=== PATIENT | male | born 1965 | race Caucasian/White ===

== ENCOUNTER 2018-09-20 21:28 | Inpatient (IN) | payer OTHER ==
[2018-09-20 21:50] VITALS: BMI 27.1
--- NOTE | 2018-09-21 01:04 | HP ---
COWS - Scale Resting Pulse: 0= [place] 80 or Below Sweatin=Flushed/Facial Moisture Restless Observation: 0= Sits Still Pupil Size: 0= Normal to Room Light Bone or Joint Aches: 2= Severe Diffuse Aches Runny Nose/ Eye Tearin= Runny Nose/Eyes GI Upset > 30mins: 3= Vomiting/Diarrhea (vomiting x 2, diarrhea x 4) Tremor Observation: 2= Slight Tremor Visible Yawning Observation: 1= 1-2x During Session Anxiety or Irritability: 4=Extreme Anxiety Goose Flesh Skin: 0=Smooth Skin COWS Score: 16 CIWA Score - Admission Criteria OASAS Guidelines: Admission for Medically Managed Detox: Requires at least one of the followin. CIWA greater than 12 2. Seizures within the past 24 hours 3. Delirium tremens within the past 24 hours 4. Hallucinations within the past 24 hours 5. Acute intervention needed for co occurring medical disorder 6. Acute intervention needed for co occurring psychiatric disorder 7. Severe withdrawal that cannot be handled at a lower level of care (continued vomiting, continued diarrhea, abnormal vital signs) requiring intravenous medication and/or fluids 8. Admission ROS [facility] Chief Complaint: Heroin withdrawal symptoms Allergies/Adverse Reactions: Allergies Allergy/AdvReac Type Severity Reaction Status Date / Time No Known Allergies Allergy Verified 09/20/18 23:27 History of Present Illness: 52 years old male with a long history of heroin dependence is seeking admission to detox. Patient has been in previous detox At [facility] and reports 7 years of sobriety. He has medical history of Hep. C and denies suicide attempt / suicidal ideation at this time. Exam Limitations: No Limitations - Ebola screening Have you traveled outside of the country in the last 21 days: No Have you had contact with anyone from an Ebola affected area: No Have you been sick,other than usual withdrawal symptoms: No Do you have a fever: No - Review of Systems Constitutional: Chills, Loss of Appetite, Malaise, Changes in sleep EENT: reports: Nose Congestion Respiratory: reports: No Symptoms reported Cardiac: reports: No Symptoms Reported GI: reports: Diarrhea, Nausea, Poor Appetite, Poor Fluid Intake, Abdominal cramping : reports: No Symptoms Reported Musculoskeletal: reports: Back Pain Integumentary: reports: Dryness, Flushing Neuro: reports: Tremors Endocrine: reports: No Symptoms Reported Hematology: reports: No Symptoms Reported Psychiatric: reports: Anxious, Depressed Other Systems: Reviewed and Negative Patient History - Patient Medical History Hx Anemia: No Hx Asthma: No Hx Chronic Obstructive Pulmonary Disease (COPD): No Hx Cancer: No Hx Cardiac Disorders: No Hx Congestive Heart Failure: No Hx Hypertension: No Hx Hypercholesterolemia: No Hx Pacemaker: No HX Cerebrovascular Accident: No Hx Seizures: No Hx Dementia: No Hx Diabetes: No Hx Gastrointestinal Disorders: No Hx Liver Disease: No Hx Genitourinary Disorders: No Hx Sexually Transmitted Disorders: No Hx Renal Disease (ESRD): No Hx Thyroid Disease: No Hx Human Immunodeficiency Virus (HIV): No (Negative 2018) Hx Hepatitis C: Yes (Not treated) Hx Depression: No Hx Suicide Attempt: No (Denies suicidal ideation at this time) Hx Bipolar Disorder: No Hx Schizophrenia: No - Patient Surgical History Past Surgical History: No Hx Neurologic Surgery: No Hx Cataract Extraction: No Hx Cardiac Surgery: No Hx Lung Surgery: No Hx Breast Surgery: No Hx Breast Biopsy: No Hx Abdominal Surgery: No Hx Appendectomy: No Hx Cholecystectomy: No Hx Genitourinary Surgery: No Hx Section: No Hx Orthopedic Surgery: No Anesthesia Reaction: No - PPD History Previous Implant?: No (PPD POSITIVE, TREATED WITH INH and VIT. B-12) Documented Results: Positive w/o proof Implanted On Prior R Admission?: No PPD to be Administered?: No - Reproductive History Patient is a Female of Child Bearing Age (11 -55 yrs old): No (MALE) - Smoking Cessation Smoking history: Current every day smoker Have you smoked in the past 12 months: Yes Aproximately how many cigarettes per day: 10 Hx Chewing Tobacco Use: No Initiated information on smoking cessation: Yes 'Breaking Loose' booklet given: 09/21/18 - Substance & Tx. History Hx Alcohol Use: No Hx Substance Use: Yes Substance Use Type: Cocaine, Heroin Hx Substance Use Treatment: Yes ([facility]) - Substances Abused Heroin Route: Injection Frequency: Daily Amount used: 6 BAGS Age of first use: 33 Date of Last Use: 09/20/18 Cocaine Route: Injection Frequency: Daily Amount used: $20 Age of first use: 33 Date of Last Use: 09/20/18 Family Disease History - Family Disease History Family History: Denies Admission Physical Exam BHS - Vital Signs Vital Signs: Vital Signs - 24 hr 09/20/18 21:48 Temperature 96.6 F L Pulse Rate 73 Respiratory 18 Rate Blood Pressure 120/84 - Physical General Appearance: Yes: Moderate Distress, Tremorous, Irritable, Sweating, Anxious HEENTM: Yes: Within Normal Limits, Normocephalic, GAIL, Nasal Congestion Respiratory: Yes: Lungs Clear, Normal Breath Sounds, No Respiratory Distress Neck: Yes: Supple Breast: Yes: Breast Exam Deferred Cardiology: Yes: Regular Rate, Murmur Abdominal: Yes: Normal Bowel Sounds Genitourinary: Yes: Within Normal Limits Back: Yes: CVA Tenderness (L) Musculoskeletal: Yes: Back pain Extremities: Yes: Tremors Neurological: Yes: Alert, Normal Mood/Affect Integumentary: Yes: Warm Lymphatic: Yes: Within Normal Limits - Diagnostic (1) Opioid dependence, uncomplicated Current Visit: Yes Status: Chronic (2) Hep C w/o coma, chronic Current Visit: Yes Status: Chronic Cleared for Admission [facility] - Detox or Rehab [facility] Level of Care: Medically Managed Detox Regimen/Protocol: Methadone [facility] Breath Alcohol Content Breath Alcohol Content: 0 Urine Drug Screen - Results Drug Screen Negative: No Urine Drug Screen Results: DEBORAH-Cocaine, OPI-Opiates, BZO-Benzodiazepines, MTD- Methadone, OXY-Oxycodone, FEN-Fentanyl
[2018-09-21] MEDS ORDERED: P-EPHED 60MG/TRIPROLIDI 2.5MG TABLET PO PRN (01:14)
[2018-09-21] MEDS ORDERED: METHADONE HCL 10 MG TABLET (FOR DETOX USE ONLY) PO ONE ×3 (01:14→23:00)
[2018-09-21] MEDS ORDERED: guaiFENesin/D-METHORPHAN HB 10 ML UNIT-DOSE CUPS PO PRN (01:14)
[2018-09-21] MEDS ORDERED: MAGNESIUM CITRATE 300 ML BOTTLE PO PRN (01:14)
[2018-09-21] MEDS ORDERED: MAG HYDROX/AL HYDROX/SIMETH 30 ML UNIT-DOSE CUP PO PRN (01:14)
[2018-09-21] MEDS ORDERED: LOPERAMIDE HCL 2 MG CAPSULE PO PRN (01:14)
[2018-09-21] MEDS ORDERED: MAGNESIUM HYDROX 2400MG/30ML ORAL SUSPENSION 30 ML CUP PO PRN (01:14)
[2018-09-21] MEDS ORDERED: NICOTINE POLACRILEX 2 MG GUM BC PRN (01:14)
[2018-09-21] MEDS ORDERED: MENTHOL/PHENOL 1 EACH UD MM PRN (01:14)
[2018-09-21] MEDS: diazePAM 5 MG TABLET PO PRN ×2 (01:50→22:25)
[2018-09-21] MEDS: NICOTINE 14 MG/24 HOURS TOPICAL PATCH TD SCH (10:17)
[2018-09-21] MEDS: PRENATAL VITAMINS W/ FOLIC ACID TABLET (FP) PO SCH (10:18)
--- NOTE | 2018-09-21 15:05 | PN ---
BHS COWS - Scale Resting Pulse: 0= [place] 80 or Below Sweatin= Chills/Flushing Restless Observation: 1= Difficult to Sit Still Pupil Size: 0= Normal to Room Light Bone or Joint Aches: 2= Severe Diffuse Aches Runny Nose/ Eye Tearin= None GI Upset > 30mins: 1= Stomach Cramp Tremor Observation of Outstretched Hands: 2= Slight Tremor Visible Yawning Observation: 1= 1-2x During Session Anxiety or Irritability: 1=Feels Anxious/Irritable Goose Flesh Skin: 3=Piloerection COWS Score: 12 BHS Progress Note (SOAP) Subjective: Body Aches, Stomach Cramping, Sweating, Tremors, Interrupted Sleep. Objective: PATIENT A & O X 2 (UNCERTAIN ABOUT CURRENT DAY / DATE). PATIENT OBSERVED AMBULATING ON UNIT. IN NO ACUTE DISTRESS. 09/21/18 15:03 Vital Signs Temperature 96.6 F L 09/21/18 13:46 Pulse Rate 74 09/21/18 13:46 Respiratory Rate 18 09/21/18 13:46 Blood Pressure 113/77 09/21/18 13:46 O2 Sat by Pulse Oximetry (%) ADMISSION LAB RESULTS PENDING. 09/21/18 15:04 Assessment: 09/21/18 15:04 WITHDRAWAL SYMPTOMS. Plan: CONTINUE DETOX. INCREASE DAILY PO FLUID INTAKE. PRN FLEXERIL PO FOR BODY ACHES / MUSCLE SPASMS.
[2018-09-21] MEDS: CYCLOBENZAPRINE HCL 10 MG TABLET (FP) PO PRN (20:58)
[2018-09-21] MEDS: THIAMINE HCL 100 MG TABLET (FP) PO SCH (22:25)
[2018-09-22] MEDS ORDERED: METHADONE HCL 10 MG TABLET (FOR DETOX USE ONLY) PO ONE (10:00)
[2018-09-22 10:22] LABS: ALBUMIN 3.1 g/dl (3.4-5.0); ALK PHOS 70 U/L (45-117); ANION GAP 7 MMOL/L (8-16); BILIRUBIN,TOTAL 0.3 mg/dL (0.2-1); BLOOD UREA NITROGEN 13 mg/dL (7-18); CALCIUM 8.4 mg/dL (8.5-10.1); CHLORIDE 106 mmol/L (98-107); CO2 27 mmol/L (21-32); CREATININE 0.8 mg/dL (0.55-1.3); GLUCOSE,RANDOM 97 mg/dL (74-106); POTASSIUM 4.2 mmol/L (3.5-5.1); SGOT/AST 63 U/L (15-37); SGPT/ALT 87 U/L (13-61); SODIUM 140 mmol/L (136-145); TOT PROT 7.2 g/dl (6.4-8.2)
[2018-09-22] MEDS: diazePAM 5 MG TABLET PO PRN ×2 (10:22→22:11)
[2018-09-22] MEDS: PRENATAL VITAMINS W/ FOLIC ACID TABLET (FP) PO SCH (10:22)
[2018-09-22] MEDS: ACETAMINOPHEN 325 MG TABLET (FP) PO PRN ×2 (10:23→22:11)
[2018-09-22] MEDS: NICOTINE 14 MG/24 HOURS TOPICAL PATCH TD SCH (10:24)
[2018-09-22 10:42] LABS: HEMATOCRIT 40.8 % (35.4-49); HEMOGLOBIN 13.7 GM/dL (11.7-16.9); MCH 29.1 pg (25.7-33.7); MCHC 33.6 g/dl (32.0-35.9); MEAN CELL VOLUME 86.6 fl (80-96); PLATELET COUNT 273 K/MM3 (134-434); RBC 4.72 M/mm3 (4.00-5.60); RDW 13.7 % (11.9-15.9); WHITE BLOOD COUNT 5.4 K/mm3 (4.0-10.0)
--- NOTE | 2018-09-22 11:04 | PN ---
BHS COWS - Scale Resting Pulse: 0= [place] 80 or Below Sweatin= Chills/Flushing Restless Observation: 1= Difficult to Sit Still Pupil Size: 1= Pupils >than Normal Bone or Joint Aches: 1= Mild Discomfort Runny Nose/ Eye Tearin= Nasal Congestion GI Upset > 30mins: 1= Stomach Cramp Tremor Observation of Outstretched Hands: 1= Tremor [place], Not Seen Yawning Observation: 1= 1-2x During Session Anxiety or Irritability: 1=Feels Anxious/Irritable Goose Flesh Skin: 0=Smooth Skin COWS Score: 9 BHS Progress Note (SOAP) Subjective: body aches tremor joints pain sweating slept through the night social with peers in day room Objective: 09/22/18 11:03 Vital Signs Temperature 97.2 F L 09/22/18 09:29 Pulse Rate 64 09/22/18 09:29 Respiratory Rate 18 09/22/18 09:29 Blood Pressure 121/81 09/22/18 09:29 O2 Sat by Pulse Oximetry (%) Laboratory Last Values WBC 5.4 K/mm3 (4.0-10.0) 09/22/18 07:50 RBC 4.72 M/mm3 (4.00-5.60) 09/22/18 07:50 Hgb 13.7 GM/dL (11.7-16.9) 09/22/18 07:50 Hct 40.8 % (35.4-49) 09/22/18 07:50 MCV 86.6 fl (80-96) 09/22/18 07:50 MCH 29.1 pg (25.7-33.7) 09/22/18 07:50 MCHC 33.6 g/dl (32.0-35.9) 09/22/18 07:50 RDW 13.7 % (11.9-15.9) 09/22/18 07:50 Plt Count 273 K/MM3 (134-434) 09/22/18 07:50 MPV 8.0 fl (7.5-11.1) 09/22/18 07:50 Sodium 140 mmol/L (136-145) 09/22/18 07:50 Potassium 4.2 mmol/L (3.5-5.1) 09/22/18 07:50 Chloride 106 mmol/L (98-107) 09/22/18 07:50 Carbon Dioxide 27 mmol/L (21-32) 09/22/18 07:50 Anion Gap 7 MMOL/L (8-16) L 09/22/18 07:50 BUN 13 mg/dL (7-18) 09/22/18 07:50 Creatinine 0.8 mg/dL (0.55-1.3) 09/22/18 07:50 Creat Clearance w eGFR > 60 (>60) 09/22/18 07:50 Random Glucose 97 mg/dL (74-106) 09/22/18 07:50 Calcium 8.4 mg/dL (8.5-10.1) L 09/22/18 07:50 Total Bilirubin 0.3 mg/dL (0.2-1) 09/22/18 07:50 AST 63 U/L (15-37) H 09/22/18 07:50 ALT 87 U/L (13-61) H 09/22/18 07:50 Alkaline Phosphatase 70 U/L (45-117) 09/22/18 07:50 Total Protein 7.2 g/dl (6.4-8.2) 09/22/18 07:50 Albumin 3.1 g/dl (3.4-5.0) L 09/22/18 07:50 lab noted Assessment: 09/22/18 11:03 withdrawal sx Plan: continue detox adjusting opiate detox regimen that the patient has less opiate withdrawal sx today
[2018-09-22] MEDS: CYCLOBENZAPRINE HCL 10 MG TABLET (FP) PO PRN (22:11)
[2018-09-22] MEDS: THIAMINE HCL 100 MG TABLET (FP) PO SCH (22:11)
[2018-09-23] MEDS: IBUPROFEN 400 MG TABLET (FP) PO PRN (08:27)
[2018-09-23] MEDS ORDERED: METHADONE HCL 5 MG TABLET (FOR DETOX USE ONLY) PO ONE ×2 (10:00)
[2018-09-23] MEDS: PRENATAL VITAMINS W/ FOLIC ACID TABLET (FP) PO SCH (10:13)
[2018-09-23] MEDS: NICOTINE 14 MG/24 HOURS TOPICAL PATCH TD SCH (10:17)
--- NOTE | 2018-09-23 10:20 | PN ---
BHS Progress Note (SOAP) Subjective: body aches muscle cramping tremor sweating trouble sleep at night Objective: 09/23/18 10:19 Vital Signs Temperature 96 F L 09/23/18 09:06 Pulse Rate 83 09/23/18 09:06 Respiratory Rate 16 09/23/18 09:06 Blood Pressure 122/87 09/23/18 09:06 O2 Sat by Pulse Oximetry (%) Laboratory Last Values WBC 5.4 K/mm3 (4.0-10.0) 09/22/18 07:50 RBC 4.72 M/mm3 (4.00-5.60) 09/22/18 07:50 Hgb 13.7 GM/dL (11.7-16.9) 09/22/18 07:50 Hct 40.8 % (35.4-49) 09/22/18 07:50 MCV 86.6 fl (80-96) 09/22/18 07:50 MCH 29.1 pg (25.7-33.7) 09/22/18 07:50 MCHC 33.6 g/dl (32.0-35.9) 09/22/18 07:50 RDW 13.7 % (11.9-15.9) 09/22/18 07:50 Plt Count 273 K/MM3 (134-434) 09/22/18 07:50 MPV 8.0 fl (7.5-11.1) 09/22/18 07:50 Sodium 140 mmol/L (136-145) 09/22/18 07:50 Potassium 4.2 mmol/L (3.5-5.1) 09/22/18 07:50 Chloride 106 mmol/L (98-107) 09/22/18 07:50 Carbon Dioxide 27 mmol/L (21-32) 09/22/18 07:50 Anion Gap 7 MMOL/L (8-16) L 09/22/18 07:50 BUN 13 mg/dL (7-18) 09/22/18 07:50 Creatinine 0.8 mg/dL (0.55-1.3) 09/22/18 07:50 Creat Clearance w eGFR > 60 (>60) 09/22/18 07:50 Random Glucose 97 mg/dL (74-106) 09/22/18 07:50 Calcium 8.4 mg/dL (8.5-10.1) L 09/22/18 07:50 Total Bilirubin 0.3 mg/dL (0.2-1) 09/22/18 07:50 AST 63 U/L (15-37) H 09/22/18 07:50 ALT 87 U/L (13-61) H 09/22/18 07:50 Alkaline Phosphatase 70 U/L (45-117) 09/22/18 07:50 Total Protein 7.2 g/dl (6.4-8.2) 09/22/18 07:50 Albumin 3.1 g/dl (3.4-5.0) L 09/22/18 07:50 RPR Titer Nonreactive (NONREACTIVE) 09/22/18 07:50 lab noted Assessment: 09/23/18 10:20 withdrawal sx Plan: continue detox
[2018-09-23] MEDS: THIAMINE HCL 100 MG TABLET (FP) PO SCH (22:07)
[2018-09-23] MEDS: CYCLOBENZAPRINE HCL 10 MG TABLET (FP) PO PRN (22:07)
[2018-09-24] MEDS ORDERED: METHADONE HCL 5 MG TABLET (FOR DETOX USE ONLY) PO ONE ×2 (10:00)
[2018-09-24] MEDS: NICOTINE 14 MG/24 HOURS TOPICAL PATCH TD SCH (10:41)
[2018-09-24] MEDS: PRENATAL VITAMINS W/ FOLIC ACID TABLET (FP) PO SCH (10:41)
[2018-09-24] MEDS: ACETAMINOPHEN 325 MG TABLET (FP) PO PRN (10:44)
--- NOTE | 2018-09-24 14:23 | PN ---
BHS Progress Note (SOAP) Subjective: feeling better mild body aches less sweating little tremor sleep better at night Objective: 09/24/18 14:19 Vital Signs Temperature 96.1 F L 09/24/18 13:41 Pulse Rate 76 09/24/18 13:41 Respiratory Rate 18 09/24/18 13:41 Blood Pressure 100/94 09/24/18 13:41 O2 Sat by Pulse Oximetry (%) Laboratory Last Values WBC 5.4 K/mm3 (4.0-10.0) 09/22/18 07:50 RBC 4.72 M/mm3 (4.00-5.60) 09/22/18 07:50 Hgb 13.7 GM/dL (11.7-16.9) 09/22/18 07:50 Hct 40.8 % (35.4-49) 09/22/18 07:50 MCV 86.6 fl (80-96) 09/22/18 07:50 MCH 29.1 pg (25.7-33.7) 09/22/18 07:50 MCHC 33.6 g/dl (32.0-35.9) 09/22/18 07:50 RDW 13.7 % (11.9-15.9) 09/22/18 07:50 Plt Count 273 K/MM3 (134-434) 09/22/18 07:50 MPV 8.0 fl (7.5-11.1) 09/22/18 07:50 Sodium 140 mmol/L (136-145) 09/22/18 07:50 Potassium 4.2 mmol/L (3.5-5.1) 09/22/18 07:50 Chloride 106 mmol/L (98-107) 09/22/18 07:50 Carbon Dioxide 27 mmol/L (21-32) 09/22/18 07:50 Anion Gap 7 MMOL/L (8-16) L 09/22/18 07:50 BUN 13 mg/dL (7-18) 09/22/18 07:50 Creatinine 0.8 mg/dL (0.55-1.3) 09/22/18 07:50 Creat Clearance w eGFR > 60 (>60) 09/22/18 07:50 Random Glucose 97 mg/dL (74-106) 09/22/18 07:50 Calcium 8.4 mg/dL (8.5-10.1) L 09/22/18 07:50 Total Bilirubin 0.3 mg/dL (0.2-1) 09/22/18 07:50 AST 63 U/L (15-37) H 09/22/18 07:50 ALT 87 U/L (13-61) H 09/22/18 07:50 Alkaline Phosphatase 70 U/L (45-117) 09/22/18 07:50 Total Protein 7.2 g/dl (6.4-8.2) 09/22/18 07:50 Albumin 3.1 g/dl (3.4-5.0) L 09/22/18 07:50 RPR Titer Nonreactive (NONREACTIVE) 09/22/18 07:50 HIV 1&2 Antibody Screen Negative 09/23/18 07:00 HIV P24 Antigen Negative 09/23/18 07:00 lab noted Assessment: 09/24/18 14:21 mild withdrawal sx Plan: continue detox
[2018-09-24] MEDS: IBUPROFEN 400 MG TABLET (FP) PO PRN (20:02)
[2018-09-24] MEDS: THIAMINE HCL 100 MG TABLET (FP) PO SCH (22:00)
[2018-09-24] MEDS: MELATONIN 5 MG TABLETS PO PRN (22:00)
[2018-09-24] MEDS: CYCLOBENZAPRINE HCL 10 MG TABLET (FP) PO PRN (22:00)
[2018-09-25] MEDS ORDERED: METHADONE HCL 5 MG TABLET (FOR DETOX USE ONLY) PO ONE (06:00)
--- NOTE | 2018-09-25 08:51 | PN ---
JACKI Progress Note Note: patient preferred five full days of opiate detox patient does not want to leave the detox today that he has sx of withdrawal
[2018-09-25] MEDS ORDERED: METHADONE HCL 10 MG TABLET (FOR DETOX USE ONLY) PO ONE (10:00)
[2018-09-25] MEDS: PRENATAL VITAMINS W/ FOLIC ACID TABLET (FP) PO SCH (10:21)
[2018-09-25] MEDS: NICOTINE 14 MG/24 HOURS TOPICAL PATCH TD SCH (10:21)
--- NOTE | 2018-09-25 11:41 | PN ---
BHS Progress Note (SOAP) Subjective: mild body aches less tremor sleep better at night Objective: 09/25/18 11:42 Vital Signs Temperature 98.2 F 09/25/18 09:17 Pulse Rate 75 09/25/18 09:17 Respiratory Rate 16 09/25/18 09:17 Blood Pressure 131/89 09/25/18 09:17 O2 Sat by Pulse Oximetry (%) Laboratory Last Values WBC 5.4 K/mm3 (4.0-10.0) 09/22/18 07:50 RBC 4.72 M/mm3 (4.00-5.60) 09/22/18 07:50 Hgb 13.7 GM/dL (11.7-16.9) 09/22/18 07:50 Hct 40.8 % (35.4-49) 09/22/18 07:50 MCV 86.6 fl (80-96) 09/22/18 07:50 MCH 29.1 pg (25.7-33.7) 09/22/18 07:50 MCHC 33.6 g/dl (32.0-35.9) 09/22/18 07:50 RDW 13.7 % (11.9-15.9) 09/22/18 07:50 Plt Count 273 K/MM3 (134-434) 09/22/18 07:50 MPV 8.0 fl (7.5-11.1) 09/22/18 07:50 Sodium 140 mmol/L (136-145) 09/22/18 07:50 Potassium 4.2 mmol/L (3.5-5.1) 09/22/18 07:50 Chloride 106 mmol/L (98-107) 09/22/18 07:50 Carbon Dioxide 27 mmol/L (21-32) 09/22/18 07:50 Anion Gap 7 MMOL/L (8-16) L 09/22/18 07:50 BUN 13 mg/dL (7-18) 09/22/18 07:50 Creatinine 0.8 mg/dL (0.55-1.3) 09/22/18 07:50 Creat Clearance w eGFR > 60 (>60) 09/22/18 07:50 Random Glucose 97 mg/dL (74-106) 09/22/18 07:50 Calcium 8.4 mg/dL (8.5-10.1) L 09/22/18 07:50 Total Bilirubin 0.3 mg/dL (0.2-1) 09/22/18 07:50 AST 63 U/L (15-37) H 09/22/18 07:50 ALT 87 U/L (13-61) H 09/22/18 07:50 Alkaline Phosphatase 70 U/L (45-117) 09/22/18 07:50 Total Protein 7.2 g/dl (6.4-8.2) 09/22/18 07:50 Albumin 3.1 g/dl (3.4-5.0) L 09/22/18 07:50 RPR Titer Nonreactive (NONREACTIVE) 09/22/18 07:50 HIV 1&2 Antibody Screen Negative 09/23/18 07:00 HIV P24 Antigen Negative 09/23/18 07:00 lab noted Assessment: 09/25/18 11:42 mild withdrawal sx Plan: continue detox
[2018-09-25] MEDS: IBUPROFEN 400 MG TABLET (FP) PO PRN (18:28)
[2018-09-25] MEDS: THIAMINE HCL 100 MG TABLET (FP) PO SCH (22:18)
[2018-09-25] MEDS: MELATONIN 5 MG TABLETS PO PRN (22:18)
[2018-09-25] MEDS: CYCLOBENZAPRINE HCL 10 MG TABLET (FP) PO PRN (22:18)
[2018-09-26] MEDS ORDERED: METHADONE HCL 5 MG TABLET (FOR DETOX USE ONLY) PO ONE (06:00)
[2018-09-26 06:14] VITALS: BP 126/79; PULSE 65; TEMP 97.2
--- NOTE | 2018-09-26 10:44 | DS ---
[facility] Detox Discharge Summary Admission Date: 09/21/18 Discharge Date: 09/26/18 - History Present History: Opioid Dependence Additional Comments: 53 years old male admitted on 09/21/18 for opiate withdrawal stabilization completed opiate detox regimen [facility] Pertinent Past History: discuss medication assisted treatment program encourage narcan kit avoid possibility fatal overdose - Physical Exam Results Vital Signs: Vital Signs Temperature 97.2 F L 09/26/18 06:13 Pulse Rate 65 09/26/18 06:13 Respiratory Rate 18 09/26/18 06:30 Blood Pressure 126/79 09/26/18 06:13 O2 Sat by Pulse Oximetry (%) Pertinent Admission Physical Exam Findings: opiate withdrawal sx Laboratory Last Values WBC 5.4 K/mm3 (4.0-10.0) 09/22/18 07:50 RBC 4.72 M/mm3 (4.00-5.60) 09/22/18 07:50 Hgb 13.7 GM/dL (11.7-16.9) 09/22/18 07:50 Hct 40.8 % (35.4-49) 09/22/18 07:50 MCV 86.6 fl (80-96) 09/22/18 07:50 MCH 29.1 pg (25.7-33.7) 09/22/18 07:50 MCHC 33.6 g/dl (32.0-35.9) 09/22/18 07:50 RDW 13.7 % (11.9-15.9) 09/22/18 07:50 Plt Count 273 K/MM3 (134-434) 09/22/18 07:50 MPV 8.0 fl (7.5-11.1) 09/22/18 07:50 Sodium 140 mmol/L (136-145) 09/22/18 07:50 Potassium 4.2 mmol/L (3.5-5.1) 09/22/18 07:50 Chloride 106 mmol/L (98-107) 09/22/18 07:50 Carbon Dioxide 27 mmol/L (21-32) 09/22/18 07:50 Anion Gap 7 MMOL/L (8-16) L 09/22/18 07:50 BUN 13 mg/dL (7-18) 09/22/18 07:50 Creatinine 0.8 mg/dL (0.55-1.3) 09/22/18 07:50 Creat Clearance w eGFR > 60 (>60) 09/22/18 07:50 Random Glucose 97 mg/dL (74-106) 09/22/18 07:50 Calcium 8.4 mg/dL (8.5-10.1) L 09/22/18 07:50 Total Bilirubin 0.3 mg/dL (0.2-1) 09/22/18 07:50 AST 63 U/L (15-37) H 09/22/18 07:50 ALT 87 U/L (13-61) H 09/22/18 07:50 Alkaline Phosphatase 70 U/L (45-117) 09/22/18 07:50 Total Protein 7.2 g/dl (6.4-8.2) 09/22/18 07:50 Albumin 3.1 g/dl (3.4-5.0) L 09/22/18 07:50 RPR Titer Nonreactive (NONREACTIVE) 09/22/18 07:50 HIV 1&2 Antibody Screen Negative 09/23/18 07:00 HIV P24 Antigen Negative 09/23/18 07:00 lab noted - Treatment Hospital Course: Detox Protocol Followed, Detoxed Safely, Responded well, Discharged Condition Good, Rehab Referral Accepted Patient has Accepted a Rehab Referral to: [facility] - Medication Discharge Medications: Ambulatory Orders Naloxone HCl [Narcan] 4 mg NS ASDIR PRN #1 spray 09/24/18 - Diagnosis (1) Hep C w/o coma, chronic Status: Chronic (2) Opioid dependence, uncomplicated Status: Acute - AMA Did Patient Leave Against Medical Advice: No
== END 2018-09-26 09:00 | disposition home or self-care (01) | DRG 773 ==
LOC: YASAS 21:28 → Y3N 09-21 00:59
PROVIDERS: ADMIT Neuromusculoskeletal Medicine & OMM; ATTEND Neuromusculoskeletal Medicine & OMM
PROC: HZ2ZZZZ Detoxification Services for Substance Abuse Treatment (ICD-10-PCS; principal; 2018-09-21)
DX: F11.23 Opioid dependence with withdrawal (principal); F14.20 Cocaine dependence, uncomplicated; F17.210 Nicotine dependence, cigarettes, uncomplicated; B18.2 Chronic viral hepatitis C; R01.1 Cardiac murmur, unspecified
CPT/HCPCS: 36415; 71046-TC-FY; 80053; 85027; 86593; 87389

== ENCOUNTER 2018-10-23 08:08 | Inpatient (IN) | payer OTHER ==
[2018-10-23 09:02] VITALS: BMI 27.8
--- NOTE | 2018-10-23 10:09 | HP ---
COWS - Scale Resting Pulse: 1= [place] 81-100 Sweatin= Chills/Flushing Restless Observation: 3= Extraneous Movement Pupil Size: 1= Pupils >than Normal Bone or Joint Aches: 2= Severe Diffuse Aches Runny Nose/ Eye Tearin= Runny Nose/Eyes GI Upset > 30mins: 2= Nausea/Diarrhea Tremor Observation: 2= Slight Tremor Visible Yawning Observation: 1= 1-2x During Session Anxiety or Irritability: 2=Irritable/Anxious Goose Flesh Skin: 0=Smooth Skin COWS Score: 17 CIWA Score - Admission Criteria OASAS Guidelines: Admission for Medically Managed Detox: Requires at least one of the followin. CIWA greater than 12 2. Seizures within the past 24 hours 3. Delirium tremens within the past 24 hours 4. Hallucinations within the past 24 hours 5. Acute intervention needed for co occurring medical disorder 6. Acute intervention needed for co occurring psychiatric disorder 7. Severe withdrawal that cannot be handled at a lower level of care (continued vomiting, continued diarrhea, abnormal vital signs) requiring intravenous medication and/or fluids 8. Admission ROS S - HPI Chief Complaint: i need help to stop using heroin and cocaine Allergies/Adverse Reactions: Allergies Allergy/AdvReac Type Severity Reaction Status Date / Time No Known Allergies Allergy Verified 10/23/18 09:49 History of Present Illness: this 53 years old male with heroin and cocaine dependence,seeking detox, withdrawal symptom, multiple admissions in detox but keep relapsing history of hepatitis c no treatment follow up with medical provider in [facility] weight loss nicotine dependence plan for rehab after detox Exam Limitations: No Limitations - Ebola screening Have you traveled outside of the country in the last 21 days: No Have you had contact with anyone from an Ebola affected area: No Have you been sick,other than usual withdrawal symptoms: No Do you have a fever: No - Review of Systems Constitutional: Chills, Loss of Appetite, Malaise, Night Sweats, Changes in sleep, Weakness, Unintentional Wgt. Loss EENT: reports: Tearing, Nose Congestion Respiratory: reports: No Symptoms reported Cardiac: reports: No Symptoms Reported GI: reports: Diarrhea, Nausea, Vomiting, Abdominal cramping : reports: No Symptoms Reported Integumentary: reports: Bruising, Dryness Neuro: reports: Headache, Tremors Endocrine: reports: No Symptoms Reported Hematology: reports: No Symptoms Reported Psychiatric: reports: No Sypmtoms Reported, Judgement Intact, Mood/Affect Appropiate, Orientated x3, other Other Systems: Reviewed and Negative Patient History - Patient Medical History Hx Anemia: No Hx Asthma: No Hx Chronic Obstructive Pulmonary Disease (COPD): No Hx Cancer: No Hx Cardiac Disorders: No Hx Congestive Heart Failure: No Hx Hypertension: No Hx Hypercholesterolemia: No Hx Pacemaker: No HX Cerebrovascular Accident: No Hx Seizures: No Hx Dementia: No Hx Diabetes: No Hx Gastrointestinal Disorders: No Hx Liver Disease: No Hx Genitourinary Disorders: No Hx Sexually Transmitted Disorders: No Hx Renal Disease (ESRD): No Hx Thyroid Disease: No Hx Human Immunodeficiency Virus (HIV): No (Negative 2018) Hx Hepatitis C: Yes (Not treated) Hx Depression: No Hx Suicide Attempt: No (Denies suicidal ideation at this time) Hx Bipolar Disorder: No Hx Schizophrenia: No Other Medical History: no sucidal,no homicidal - Patient Surgical History Past Surgical History: No Hx Neurologic Surgery: No Hx Cataract Extraction: No Hx Cardiac Surgery: No Hx Lung Surgery: No Hx Breast Surgery: No Hx Breast Biopsy: No Hx Abdominal Surgery: No Hx Appendectomy: No Hx Cholecystectomy: No Hx Genitourinary Surgery: No Hx Section: No Hx Orthopedic Surgery: No Anesthesia Reaction: No - PPD History Previous Implant?: Yes Documented Results: Positive w/proof Implanted On Prior [facility] Admission?: No PPD to be Administered?: No - Smoking Cessation Smoking history: Current every day smoker Have you smoked in the past 12 months: Yes Aproximately how many cigarettes per day: 10 Hx Chewing Tobacco Use: No Initiated information on smoking cessation: Yes 'Breaking Loose' booklet given: 10/23/18 - Substance & Tx. History Hx Alcohol Use: No Hx Substance Use: Yes Substance Use Type: Cocaine, Heroin Hx Substance Use Treatment: Yes ([facility] 09/21/18 to 09/26/18) - Substances Abused Heroin Route: Injection Frequency: Daily Amount used: 9 bags Age of first use: 33 Date of Last Use: 10/22/18 Cocaine Route: Injection Frequency: Daily Amount used: $20 Age of first use: 23 Date of Last Use: 10/22/18 Family Disease History - Family Disease History Family History: Denies Admission Physical Exam BHS - Vital Signs Vital Signs: Vital Signs - 24 hr 10/23/18 08:59 Temperature 98.3 F Pulse Rate 93 H Respiratory 20 Rate Blood Pressure 123/77 - Physical General Appearance: Yes: Moderate Distress, Tremorous, Irritable, Sweating, Anxious HEENTM: Yes: Normal ENT Inspection, GAIL, Pharynx Normal Respiratory: Yes: Lungs Clear, Normal Breath Sounds, No Respiratory Distress Neck: Yes: Within Normal Limits, Supple, Trachea in good position Breast: Yes: Within Normal Limits Cardiology: Yes: Within Normal Limits, Regular Rhythm, Regular Rate, S1, S2 Abdominal: Yes: Within Normal Limits, Normal Bowel Sounds, Non Tender, Flat, Soft Genitourinary: Yes: Within Normal Limits Back: Yes: Muscle Spasm Musculoskeletal: Yes: full range of Motion, Back pain, Joint Stiffness, Muscle Pain Extremities: Yes: Within Normal Limits, Tremors 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 NML intact, Fully Oriented, Alert, Motor Strength 5/5 Integumentary: Yes: Dry, Track [place] Lymphatic: Yes: Within Normal Limits - Diagnostic (1) Opioid dependence with withdrawal Current Visit: Yes Status: Acute (2) Cocaine dependence Current Visit: Yes Status: Acute (3) IVDU (intravenous drug user) Current Visit: Yes Status: Acute (4) Weight loss Current Visit: Yes Status: Acute (5) Hepatitis C Current Visit: Yes Status: Acute (6) Nicotine dependence Current Visit: Yes Status: Acute Cleared for Admission [facility] - Detox or Rehab [facility] Level of Care: Medically Managed Detox Regimen/Protocol: Methadone [facility] Breath Alcohol Content Breath Alcohol Content: 0 Urine Drug Screen - Results Drug Screen Negative: No Urine Drug Screen Results: DEBORAH-Cocaine, OPI-Opiates, MTD-Methadone, FEN-Fentanyl Inpatient Rehab Admission - Rehab Decision to Admit Inpatient rehab admission?: No
[2018-10-23] MEDS ORDERED: ACETAMINOPHEN 325 MG TABLET (FP) PO PRN ×2 (10:15)
[2018-10-23] MEDS ORDERED: hydrOXYzine PAMOATE 25 MG CAPSULE (FP) PO PRN (10:15)
[2018-10-23] MEDS ORDERED: MAGNESIUM HYDROX 2400MG/30ML ORAL SUSPENSION 30 ML CUP PO PRN (10:15)
[2018-10-23] MEDS ORDERED: NICOTINE POLACRILEX 2 MG GUM BUC PRN (10:15)
[2018-10-23] MEDS ORDERED: MELATONIN 5 MG TABLETS PO PRN (10:15)
[2018-10-23] MEDS ORDERED: MENTHOL/PHENOL 1 EACH UD MM PRN (10:15)
[2018-10-23] MEDS ORDERED: IBUPROFEN 400 MG TABLET (FP) PO PRN (10:15)
[2018-10-23] MEDS ORDERED: MAGNESIUM CITRATE 300 ML BOTTLE PO PRN (10:15)
[2018-10-23] MEDS ORDERED: METHADONE HCL 10 MG TABLET (FOR DETOX USE ONLY) PO ONE ×2 (11:02→23:00)
[2018-10-23] MEDS: BISMUTH SUBSALICYLATE 262 MG/15 ML BTL PO PRN (11:35)
[2018-10-23] MEDS: NICOTINE 21 MG/24 HOURS TOPICAL PATCH TD SCH (11:36)
[2018-10-23] MEDS: MAG HYDROX/AL HYDROX/SIMETH 30 ML UNIT-DOSE CUP PO PRN (18:13)
[2018-10-23] MEDS: clonazePAM 0.5 MG TABLET PO PRN (22:43)
[2018-10-23] MEDS: METHOCARBAMOL 500 MG TABLET PO PRN (22:43)
[2018-10-24] MEDS: cloNIDine HCL 0.1 MG TABLET PO PRN ×2 (05:47→22:32)
[2018-10-24] MEDS: MAG HYDROX/AL HYDROX/SIMETH 30 ML UNIT-DOSE CUP PO PRN ×2 (05:48→18:23)
[2018-10-24] MEDS ORDERED: METHADONE HCL 10 MG TABLET (FOR DETOX USE ONLY) PO ONE (10:00)
[2018-10-24] MEDS: PRENATAL VITAMINS W/ FOLIC ACID TABLET (FP) PO SCH (10:12)
[2018-10-24] MEDS: NICOTINE 21 MG/24 HOURS TOPICAL PATCH TD SCH (10:13)
[2018-10-24] MEDS: THIAMINE HCL 100 MG TABLET (FP) PO SCH (10:13)
[2018-10-24 10:38] LABS: HEMATOCRIT 43.1 % (35.4-49); HEMOGLOBIN 14.5 GM/dL (11.7-16.9); MCH 29.2 pg (25.7-33.7); MCHC 33.6 g/dl (32.0-35.9); MEAN CELL VOLUME 86.9 fl (80-96); MEAN PLT VOLUME 8.7 fl (7.5-11.1); PLATELET COUNT 346 K/MM3 (134-434); RBC 4.96 M/mm3 (4.00-5.60); RDW 13.3 % (11.9-15.9); WHITE BLOOD COUNT 11.3 K/mm3 (4.0-10.0)
[2018-10-24 10:45] LABS: ALBUMIN 3.9 g/dl (3.4-5.0); ALK PHOS 92 U/L (45-117); ANION GAP 7 MMOL/L (8-16); BILIRUBIN,TOTAL 1.1 mg/dL (0.2-1); BLOOD UREA NITROGEN 26 mg/dL (7-18); CHLORIDE 101 mmol/L (98-107); CO2 28 mmol/L (21-32); CREATININE 1.1 mg/dL (0.55-1.3); GLUCOSE,RANDOM 73 mg/dL (74-106); POTASSIUM 4.3 mmol/L (3.5-5.1); SGOT/AST 114 U/L (15-37); SGPT/ALT 100 U/L (13-61); SODIUM 136 mmol/L (136-145); TOT PROT 8.3 g/dl (6.4-8.2)
--- NOTE | 2018-10-24 11:08 | PN ---
BHS COWS - Scale Resting Pulse: 1= [place] 81-100 Sweatin=Flushed/Facial Moisture Restless Observation: 1= Difficult to Sit Still Pupil Size: 0= Normal to Room Light Bone or Joint Aches: 2= Severe Diffuse Aches Runny Nose/ Eye Tearin= Runny Nose/Eyes GI Upset > 30mins: 1= Stomach Cramp Tremor Observation of Outstretched Hands: 2= Slight Tremor Visible Yawning Observation: 2= >3x During Session Anxiety or Irritability: 2=Irritable/Anxious Goose Flesh Skin: 0=Smooth Skin COWS Score: 15 BHS Progress Note (SOAP) Subjective: right hand swelling from IVD use sweats shakes interrupted sleep body aches irritable Objective: 10/24/18 11:06 Vital Signs Temperature 98.4 F 10/24/18 10:07 Pulse Rate 85 10/24/18 10:07 Respiratory Rate 18 10/24/18 10:07 Blood Pressure 109/67 10/24/18 10:07 O2 Sat by Pulse Oximetry (%) Laboratory Tests 10/24/18 10/24/18 06:00 06:00 WBC 11.3 H RBC 4.96 Hgb 14.5 Hct 43.1 MCV 86.9 MCH 29.2 MCHC 33.6 RDW 13.3 Plt Count 346 D MPV 8.7 Sodium 136 Potassium 4.3 Chloride 101 Carbon Dioxide 28 Anion Gap 7 L BUN 26 H Creatinine 1.1 Creat Clearance w eGFR > 60 Random Glucose 73 L Calcium 9.0 Total Bilirubin 1.1 H AST 114 H ALT 100 H Alkaline Phosphatase 92 Total Protein 8.3 H Albumin 3.9 labs noted elevated ast/alt d/c tylenol repeat lab Assessment: 10/24/18 11:07 withdrawal sx right hand swelling and barrera noted. Plan: continue detox increase fluids bactrim ds x 7 days
[2018-10-24] MEDS: SULFAMETHOXAZOLE/TRIMETHOPRIM 800MG/160MG D.S. TABLET PO SCH (11:45)
[2018-10-24] MEDS: BISMUTH SUBSALICYLATE 262 MG/15 ML BTL PO PRN ×2 (12:13→20:35)
[2018-10-24] MEDS: clonazePAM 0.5 MG TABLET PO PRN (22:32)
[2018-10-24] MEDS: METHOCARBAMOL 500 MG TABLET PO PRN (22:32)
[2018-10-25] MEDS: MAG HYDROX/AL HYDROX/SIMETH 30 ML UNIT-DOSE CUP PO PRN ×3 (00:33→14:16)
[2018-10-25] MEDS ORDERED: METHADONE HCL 10 MG TABLET (FOR DETOX USE ONLY) PO ONE (10:00)
[2018-10-25] MEDS: SULFAMETHOXAZOLE/TRIMETHOPRIM 800MG/160MG D.S. TABLET PO SCH (10:13)
[2018-10-25] MEDS: THIAMINE HCL 100 MG TABLET (FP) PO SCH (10:13)
[2018-10-25] MEDS: NICOTINE 21 MG/24 HOURS TOPICAL PATCH TD SCH (10:13)
[2018-10-25] MEDS: PRENATAL VITAMINS W/ FOLIC ACID TABLET (FP) PO SCH (10:13)
[2018-10-25] MEDS: METHOCARBAMOL 500 MG TABLET PO PRN (13:20)
--- NOTE | 2018-10-25 13:50 | PN ---
BHS COWS - Scale Resting Pulse: 0= [place] 80 or Below Sweatin=Flushed/Facial Moisture Restless Observation: 1= Difficult to Sit Still Pupil Size: 0= Normal to Room Light Bone or Joint Aches: 1= Mild Discomfort Runny Nose/ Eye Tearin= Nasal Congestion GI Upset > 30mins: 0= None Tremor Observation of Outstretched Hands: 2= Slight Tremor Visible Yawning Observation: 1= 1-2x During Session Anxiety or Irritability: 2=Irritable/Anxious Goose Flesh Skin: 0=Smooth Skin COWS Score: 10 BHS Progress Note (SOAP) Subjective: sweats mild shakes chills Objective: 10/25/18 13:50 Vital Signs Temperature 98.4 F 10/25/18 13:29 Pulse Rate 96 H 10/25/18 13:29 Respiratory Rate 18 10/25/18 13:29 Blood Pressure 124/83 10/25/18 13:29 O2 Sat by Pulse Oximetry (%) Laboratory Tests 10/24/18 10/24/18 10/24/18 06:00 06:00 06:00 WBC 11.3 H RBC 4.96 Hgb 14.5 Hct 43.1 MCV 86.9 MCH 29.2 MCHC 33.6 RDW 13.3 Plt Count 346 D MPV 8.7 Sodium 136 Potassium 4.3 Chloride 101 Carbon Dioxide 28 Anion Gap 7 L BUN 26 H Creatinine 1.1 Creat Clearance w eGFR > 60 Random Glucose 73 L Calcium 9.0 Total Bilirubin 1.1 H AST 114 H ALT 100 H Alkaline Phosphatase 92 Total Protein 8.3 H Albumin 3.9 RPR Titer Nonreactive aaox3 ambulating no acute distress labs noted repeat cmp ordered Assessment: 10/25/18 13:52 mild withdrawal sx Plan: continue detox increase fluids
[2018-10-26] MEDS: METHOCARBAMOL 500 MG TABLET PO PRN ×3 (06:16→23:06)
[2018-10-26] MEDS ORDERED: METHADONE HCL 10 MG TABLET (FOR DETOX USE ONLY) PO ONE (10:00)
[2018-10-26] MEDS: NICOTINE 21 MG/24 HOURS TOPICAL PATCH TD SCH (10:08)
[2018-10-26] MEDS: THIAMINE HCL 100 MG TABLET (FP) PO SCH (10:09)
[2018-10-26] MEDS: PRENATAL VITAMINS W/ FOLIC ACID TABLET (FP) PO SCH (10:09)
[2018-10-26] MEDS: SULFAMETHOXAZOLE/TRIMETHOPRIM 800MG/160MG D.S. TABLET PO SCH (10:09)
[2018-10-26 10:53] LABS: ALBUMIN 3.1 g/dl (3.4-5.0); ALK PHOS 69 U/L (45-117); ANION GAP 5 MMOL/L (8-16); BILIRUBIN,TOTAL 0.5 mg/dL (0.2-1); BLOOD UREA NITROGEN 12 mg/dL (7-18); CALCIUM 8.6 mg/dL (8.5-10.1); CHLORIDE 101 mmol/L (98-107); CO2 29 mmol/L (21-32); CREATININE 0.8 mg/dL (0.55-1.3); GLUCOSE,RANDOM 92 mg/dL (74-106); POTASSIUM 4.3 mmol/L (3.5-5.1); SGOT/AST 53 U/L (15-37); SGPT/ALT 77 U/L (13-61); SODIUM 135 mmol/L (136-145); TOT PROT 7.4 g/dl (6.4-8.2)
--- NOTE | 2018-10-26 11:21 | PN ---
BHS Progress Note (SOAP) Subjective: pt c/o hiccups sweats Objective: 10/26/18 11:20 Vital Signs Temperature 98.8 F 10/26/18 06:00 Pulse Rate 70 10/26/18 06:00 Respiratory Rate 18 10/26/18 06:00 Blood Pressure 103/72 10/26/18 06:00 O2 Sat by Pulse Oximetry (%) aaox3 ambulating no acute distress Assessment: 10/26/18 11:21 mild withdrawals noted Plan: continue detox increase fluids baclofen ordered prn d/c in am
[2018-10-26] MEDS ORDERED: BACLOFEN 10 MG TABLET (FP) PO PRN (11:22)
[2018-10-26] MEDS ORDERED: BACLOFEN 10 MG TABLET (FP) PO SCH (14:00)
[2018-10-27] MEDS ORDERED: METHADONE HCL 5 MG TABLET (FOR DETOX USE ONLY) PO ONE (06:00)
[2018-10-27 09:55] VITALS: BP 119/85; PULSE 77; TEMP 98.6
[2018-10-27] MEDS: THIAMINE HCL 100 MG TABLET (FP) PO SCH (10:59)
[2018-10-27] MEDS: PRENATAL VITAMINS W/ FOLIC ACID TABLET (FP) PO SCH (10:59)
[2018-10-27] MEDS: SULFAMETHOXAZOLE/TRIMETHOPRIM 800MG/160MG D.S. TABLET PO SCH (10:59)
[2018-10-27] MEDS: NICOTINE 21 MG/24 HOURS TOPICAL PATCH TD SCH (10:59)
--- NOTE | 2018-10-27 12:10 | DS ---
[facility] Detox Discharge Summary Admission Date: 10/23/18 - History Present History: Cocaine Dependence, Opioid Dependence Additional Comments: Patient completed detox successfully. Patient is A/A/Ox3, in nad, vss, ambulatory. Patient scheduled for discharge today and awaiting bed at [facility]. Pertinent Past History: Opioid dependence Cocaine dependence Hepatitis C (treated) Nicotine dependence History of PPD positive - Physical Exam Results Vital Signs: Vital Signs Temperature 98.6 F 10/27/18 09:54 Pulse Rate 77 10/27/18 09:54 Respiratory Rate 18 10/27/18 09:54 Blood Pressure 119/85 10/27/18 09:54 O2 Sat by Pulse Oximetry (%) Pertinent Admission Physical Exam Findings: Withdrawal symptoms Laboratory Tests 10/24/18 10/24/18 10/24/18 06:00 06:00 06:00 WBC 11.3 H RBC 4.96 Hgb 14.5 Hct 43.1 MCV 86.9 MCH 29.2 MCHC 33.6 RDW 13.3 Plt Count 346 D MPV 8.7 Sodium 136 Potassium 4.3 Chloride 101 Carbon Dioxide 28 Anion Gap 7 L BUN 26 H Creatinine 1.1 Creat Clearance w eGFR > 60 Random Glucose 73 L Calcium 9.0 Total Bilirubin 1.1 H AST 114 H ALT 100 H Alkaline Phosphatase 92 Total Protein 8.3 H Albumin 3.9 RPR Titer Nonreactive 10/26/18 07:40 WBC RBC Hgb Hct MCV MCH MCHC RDW Plt Count MPV Sodium 135 L Potassium 4.3 Chloride 101 Carbon Dioxide 29 Anion Gap 5 L BUN 12 Creatinine 0.8 Creat Clearance w eGFR > 60 Random Glucose 92 Calcium 8.6 Total Bilirubin 0.5 AST 53 H ALT 77 H Alkaline Phosphatase 69 Total Protein 7.4 Albumin 3.1 L RPR Titer Labs reviewed: wbc 11.3, on bactrim for cellulitis right hand (repeat cbc in AM) , send UA (no result in chart) - Treatment Hospital Course: Detox Protocol Followed, Detoxed Safely, Responded well, Discharged Condition Good, Rehab Referral Accepted - Medication Discharge Medications: Ambulatory Orders Naloxone HCl [Narcan] 4 mg NS ASDIR PRN #1 spray 09/24/18 - Diagnosis (1) PPD positive Current Visit: Yes Status: Chronic (2) Leukocytosis Current Visit: Yes Status: Acute (3) Cocaine dependence Current Visit: Yes Status: Chronic (4) Hepatitis C Current Visit: Yes Status: Chronic (5) Nicotine dependence Current Visit: Yes Status: Chronic (6) Opioid dependence with withdrawal Current Visit: Yes Status: Acute (7) Cellulitis of right hand Current Visit: Yes Status: Acute - AMA Did Patient Leave Against Medical Advice: No
== END 2018-10-27 12:23 | disposition other institution (70) | DRG 773 ==
LOC: YASAS 08:08 → Y6N 10:16
PROVIDERS: ADMIT Surgery; ATTEND Surgery
PROC: HZ2ZZZZ Detoxification Services for Substance Abuse Treatment (ICD-10-PCS; principal; 2018-10-23)
DX: F11.23 Opioid dependence with withdrawal (principal); F14.20 Cocaine dependence, uncomplicated; F17.210 Nicotine dependence, cigarettes, uncomplicated; D72.829 Elevated white blood cell count, unspecified; R76.11 Nonspecific reaction to tuberculin skin test without active tuberculosis; B18.2 Chronic viral hepatitis C; L03.113 Cellulitis of right upper limb
CPT/HCPCS: 36415; 80053; 85027; 86593; J0735

== ENCOUNTER 2018-10-27 12:29 | Inpatient (IN) | payer OTHER ==
[2018-10-27] MEDS ORDERED: MAGNESIUM HYDROX 2400MG/30ML ORAL SUSPENSION 30 ML CUP PO PRN (13:15)
[2018-10-27] MEDS ORDERED: MAGNESIUM CITRATE 300 ML BOTTLE PO PRN (13:15)
[2018-10-27] MEDS ORDERED: ACETAMINOPHEN 325 MG TABLET (FP) PO PRN (13:15)
[2018-10-27] MEDS ORDERED: guaiFENesin 200 MG/10 ML 10 ML UNIT-DOSE CUPS PO PRN (13:15)
[2018-10-27] MEDS ORDERED: MENTHOL/PHENOL 1 EACH UD MM PRN (13:15)
[2018-10-27] MEDS ORDERED: hydrOXYzine PAMOATE 50 MG CAPSULE (FP) PO PRN (13:15)
[2018-10-27] MEDS ORDERED: NICOTINE POLACRILEX 2 MG GUM BUC PRN (13:15)
[2018-10-27] MEDS ORDERED: LOPERAMIDE HCL 2 MG CAPSULE PO PRN (13:15)
[2018-10-27] MEDS ORDERED: P-EPHED 60MG/TRIPROLIDI 2.5MG TABLET PO PRN (13:15)
--- NOTE | 2018-10-27 13:15 | HP ---
[facility] Rehab Assess/Revision - Admission History Admitted to Rehab from: [facility] Date of Admission to Rehab: 10/27/2018 - Findings Detox History & Physical reviewed: Yes Concur with findings: Yes Inpatient Rehab Admission - Rehab Decision to Admit Inpatient rehab admission?: Yes - Initial Determination Are CD services needed?: No Free of communicable disease: Yes Not in need of hospitalization: Yes - Rehab Admission Criteria Previous failed treatment: Yes Poor recovery environment: Yes Comorbidities: No Lacks judgement: Yes Patient is meeting Inpatient Rehab admission criteria:: Yes
[2018-10-27] MEDS ORDERED: METHOCARBAMOL 500 MG TABLET PO PRN (13:17)
[2018-10-27 13:52] VITALS: BMI 27.8
[2018-10-27] MEDS: IBUPROFEN 400 MG TABLET (FP) PO PRN ×2 (13:54→21:22)
[2018-10-27] MEDS: MAG HYDROX/AL HYDROX/SIMETH 30 ML UNIT-DOSE CUP PO PRN (17:33)
[2018-10-27] MEDS: THIAMINE HCL 100 MG TABLET (FP) PO SCH (21:23)
[2018-10-27] MEDS ORDERED: MELATONIN 5 MG TABLETS PO PRN (22:00)
[2018-10-28] MEDS: PRENATAL VITAMINS W/ FOLIC ACID TABLET (FP) PO SCH (10:38)
[2018-10-28] MEDS: SULFAMETHOXAZOLE/TRIMETHOPRIM 800MG/160MG D.S. TABLET PO SCH (10:38)
[2018-10-28] MEDS: MAG HYDROX/AL HYDROX/SIMETH 30 ML UNIT-DOSE CUP PO PRN ×2 (10:39→16:49)
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
[2018-10-28 12:38] LABS: BASO % 0.9 % (0-2.0); EOS % 2.9 % (0-4.5); HEMATOCRIT 43.7 % (35.4-49); HEMOGLOBIN 14.7 GM/dL (11.7-16.9); LYMPH % 34.7 % (8-40); MCH 29.5 pg (25.7-33.7); MCHC 33.5 g/dl (32.0-35.9); MEAN CELL VOLUME 87.9 fl (80-96); MEAN PLT VOLUME 8.4 fl (7.5-11.1); MONO % 9.6 % (3.8-10.2); NEUT % 51.9 % (42.8-82.8); PLATELET COUNT 348 K/MM3 (134-434); RBC 4.97 M/mm3 (4.00-5.60); RDW 13.4 % (11.9-15.9); WHITE BLOOD COUNT 6.9 K/mm3 (4.0-10.0)
--- NOTE | 2018-10-28 14:42 | PN ---
[facility] Progress Note Note: PT IS A 53 Y/O MALE WHO COMPLETED DETOX YESTERDAY AND REFERRED HERE TO REHAB. PT REPORTS C/O N/V, HICUPPS, LEFT AND RIGHT UPPER ABDOMINAL PAIN,BURPING. DENIES DIARRHEA OR FEVER. PT REPORTS HX OF GALLBLADDER STONES (2) EIGHT MONTHS AGO AT [facility]. REPORTS HE WAS TOLD TO COME BACK FOR FOLLOW UP FOR SURGERY BUT 'I DID'NT GO". PT STATES HE MIGHT SIGN OUT TOMORROW TO FOLLOW UP WITH HIS APPOINTMENT AT [facility]. PT IS ALERT O X 3. SAW PATIENT EATING DORITOS AND TOLERATING WELL. AMBULATING ON HALLWAY, UPRIGHT, NO ACUTE DISTRESS. Vital Signs (72 hours) 10/27/18 10/27/18 10/28/18 12:30 13:07 00:30 Temperature 98.6 F 98.6 F Pulse Rate 86 86 Respiratory 16 16 18 Rate Blood Pressure 131/69 131/69 10/28/18 10/28/18 03:30 06:52 Temperature 97.9 F Pulse Rate 68 Respiratory 18 18 Rate Blood Pressure 119/86 Laboratory Tests 10/28/18 08:30 WBC 6.9 RBC 4.97 Hgb 14.7 Hct 43.7 MCV 87.9 MCH 29.5 MCHC 33.5 RDW 13.4 Plt Count 348 MPV 8.4 Absolute Neuts (auto) 3.6 Neutrophils % 51.9 Lymphocytes % 34.7 Monocytes % 9.6 Eosinophils % 2.9 Basophils % 0.9 Nucleated RBC % 0 ABDOMEN:SOFT, BS+, NT TO PALPATION PLAN;ZOFRAN DIRECTED MONITOR PT STATUS AND FOLLOW UP NEEDED.
[2018-10-28] MEDS: THIAMINE HCL 100 MG TABLET (FP) PO SCH (21:33)
[2018-10-28] MEDS: IBUPROFEN 400 MG TABLET (FP) PO PRN (21:33)
[2018-10-28] MEDS ORDERED: SUVOREXANT 10 MG TABLET PO PRN (22:00)
[2018-10-29 06:56] VITALS: BP 132/82; PULSE 66; TEMP 98.2
[2018-10-29] MEDS: PRENATAL VITAMINS W/ FOLIC ACID TABLET (FP) PO SCH (10:05)
[2018-10-29] MEDS: SULFAMETHOXAZOLE/TRIMETHOPRIM 800MG/160MG D.S. TABLET PO SCH (10:05)
--- NOTE | 2018-10-29 10:59 | PN ---
[facility] Progress Note Note: PT DECLINED TO CONTINUE WITH REHAB STATING HE WANTS TO GO AND TAKE CARE OF HIS GALLSTONE THAT HE PREVIOUSLY FAILED TO FOLLOW UP AT [facility]. REPORTS HE HAS A PCP(SAYS NAME IS ON HIS CARD IN [employer] AND DOES NOT REMEMBER THE NAME). PT MET WITH THE COUNSELLING AND HAS BEEN REFERRED TO [facility] POST GALLSTONE TREATMENT. AMBULATING WITH NO DIFFICULTY. NO C/O PAIN OFFERED THIS MORNING. ALERT O X 3. DENIES S/H/I. Home Medications Medication Instructions Recorded Naloxone HCl [Narcan] 4 mg NS ASDIR PRN #1 spray 09/24/18 Vital Signs - 24 hr 10/29/18 06:56 Temperature 98.2 F Pulse Rate 66 Respiratory 18 Rate Blood Pressure 132/82 Laboratory Tests 10/28/18 08:30 WBC 6.9 RBC 4.97 Hgb 14.7 Hct 43.7 MCV 87.9 MCH 29.5 MCHC 33.5 RDW 13.4 Plt Count 348 MPV 8.4 Absolute Neuts (auto) 3.6 Neutrophils % 51.9 Lymphocytes % 34.7 Monocytes % 9.6 Eosinophils % 2.9 Basophils % 0.9 Nucleated RBC % 0 NAD MEDICALLY STABLE PLAN:PT SIGNED OUT AMA REMINDED PT TO FOLLOW UP WITH [facility] TO TAKE CARE OF THE GALLSTONE ISSUE ONCE AND FOR ALL SOON HE DISCHARGES. FOLLOW UP WITH [facility] ABOVE.
== END 2018-10-29 10:10 | disposition left against medical advice (07) | DRG 770 ==
LOC: YASAS 12:29 → Y5N 12:30
PROVIDERS: ADMIT Neuromusculoskeletal Medicine & OMM; ATTEND Neuromusculoskeletal Medicine & OMM
PROC: HZ42ZZZ Group Counseling for Substance Abuse Treatment, Cognitive-Behavioral (ICD-10-PCS; principal; 2018-10-27)
DX: F11.20 Opioid dependence, uncomplicated (principal); F14.20 Cocaine dependence, uncomplicated; F17.210 Nicotine dependence, cigarettes, uncomplicated; F19.282 Other psychoactive substance dependence with psychoactive substance-induced sleep disorder; F19.24 Other psychoactive substance dependence with psychoactive substance-induced mood disorder; B18.2 Chronic viral hepatitis C; R76.11 Nonspecific reaction to tuberculin skin test without active tuberculosis; Z87.19 Personal history of other diseases of the digestive system
CPT/HCPCS: 36415; 85025

== ENCOUNTER 2018-12-09 21:00 | Inpatient (IN) | payer OTHER ==
--- NOTE | 2018-12-10 02:36 | HP ---
COWS - Scale Resting Pulse: 0= [place] 80 or Below Sweatin=Flushed/Facial Moisture Restless Observation: 0= Sits Still Pupil Size: 0= Normal to Room Light Bone or Joint Aches: 4=Acute Joint/Muscle Pain Runny Nose/ Eye Tearin= Runny Nose/Eyes GI Upset > 30mins: 2= Nausea/Diarrhea (DIARRHEA X 3) Tremor Observation: 2= Slight Tremor Visible Yawning Observation: 0= None Anxiety or Irritability: 2=Irritable/Anxious Goose Flesh Skin: 0=Smooth Skin COWS Score: 14 CIWA Score - Admission Criteria OASAS Guidelines: Admission for Medically Managed Detox: Requires at least one of the followin. CIWA greater than 12 2. Seizures within the past 24 hours 3. Delirium tremens within the past 24 hours 4. Hallucinations within the past 24 hours 5. Acute intervention needed for co occurring medical disorder 6. Acute intervention needed for co occurring psychiatric disorder 7. Severe withdrawal that cannot be handled at a lower level of care (continued vomiting, continued diarrhea, abnormal vital signs) requiring intravenous medication and/or fluids 8. Admission [facility] Chief Complaint: Heroin withdrawal symptoms Allergies/Adverse Reactions: Allergies Allergy/AdvReac Type Severity Reaction Status Date / Time No Known Allergies Allergy Verified 10/23/18 09:49 History of Present Illness: 53 years old male with 7 years of heroin dependence is seeking admission to detox. Patient left against medical advice last time he was admitted but reports that he will complete this detox. He has medical history of hepatitis C , depression and anxiety. He denies suicidal ideation at this time.. Exam Limitations: No Limitations - Ebola screening Have you traveled outside of the country in the last 21 days: No (N) Have you had contact with anyone from an Ebola affected area: No Do you have a fever: No - Review of Systems Constitutional: No Symptoms Reported, Chills EENT: reports: Nose Congestion Respiratory: reports: No Symptoms reported Cardiac: reports: No Symptoms Reported GI: reports: Diarrhea, Nausea, Poor Appetite, Poor Fluid Intake : reports: No Symptoms Reported Musculoskeletal: reports: Back Pain, Muscle Pain Neuro: reports: Tremors Endocrine: reports: No Symptoms Reported Hematology: reports: No Symptoms Reported Psychiatric: reports: No Sypmtoms Reported, Mood/Affect Appropiate, Anxious, Depressed Other Systems: Reviewed and Negative Patient History - Patient Medical History Hx Anemia: No Hx Asthma: No Hx Chronic Obstructive Pulmonary Disease (COPD): No Hx Cancer: No Hx Cardiac Disorders: No Hx Congestive Heart Failure: No Hx Hypertension: No Hx Hypercholesterolemia: No Hx Pacemaker: No HX Cerebrovascular Accident: No Hx Seizures: No Hx Dementia: No Hx Diabetes: No Hx Gastrointestinal Disorders: No Hx Liver Disease: Yes (Hep C) Hx Genitourinary Disorders: No Hx Sexually Transmitted Disorders: No Hx Renal Disease (ESRD): No Hx Thyroid Disease: No Hx Human Immunodeficiency Virus (HIV): No (Negative 2018) Hx Hepatitis C: Yes (Not treated) Hx Depression: Yes Hx Suicide Attempt: No Hx Bipolar Disorder: No Hx Schizophrenia: No Other Medical History: Anxiety - Not on medication - Patient Surgical History Past Surgical History: No Hx Neurologic Surgery: No Hx Cataract Extraction: No Hx Cardiac Surgery: No Hx Lung Surgery: No Hx Breast Surgery: No Hx Breast Biopsy: No Hx Abdominal Surgery: No Hx Appendectomy: No Hx Cholecystectomy: No Hx Genitourinary Surgery: No Hx Section: No Hx Orthopedic Surgery: No Anesthesia Reaction: No - PPD History Previous Implant?: Yes (ppd positive) Documented Results: Positive w/o proof Implanted On Prior R Admission?: Yes Results: X-ray 10/08 PPD to be Administered?: No - Reproductive History Patient is a Female of Child Bearing Age (11 -55 yrs old): No (male) - Smoking Cessation Smoking history: Current every day smoker Have you smoked in the past 12 months: Yes Aproximately how many cigarettes per day: 10 Hx Chewing Tobacco Use: No Initiated information on smoking cessation: Yes 'Breaking Loose' booklet given: 12/10/18 - Substance & Tx. History Hx Alcohol Use: No Hx Substance Use: Yes Substance Use Type: Alcohol, Cocaine, Heroin Hx Substance Use Treatment: Yes - Substances abused Heroin Substance route: Injection Frequency: Daily Amount used: 9 bags Age of first use: 33 Date of last use: 12/09/18 Family Disease History - Family Disease History Family History: Denies Admission Physical Exam BHS - Physical General Appearance: Yes: Moderate Distress, Tremorous, Anxious HEENTM: Yes: EOMI, Normal ENT Inspection, Normal Voice, GAIL Respiratory: Yes: Lungs Clear, Normal Breath Sounds, No Respiratory Distress Neck: Yes: Supple Breast: Yes: Breast Exam Deferred Cardiology: Yes: Regular Rhythm, Regular Rate Abdominal: Yes: Normal Bowel Sounds, Non Tender Genitourinary: Yes: Within Normal Limits Back: Yes: Normal Inspection Musculoskeletal: Yes: Back pain, Muscle Pain Extremities: Yes: Tremors Neurological: Yes: Alert, Normal Mood/Affect Integumentary: Yes: Warm Lymphatic: Yes: Within Normal Limits - Diagnostic (1) Cocaine dependence Current Visit: Yes Status: Chronic Qualifiers: Substance use status: uncomplicated Qualified Code(s): F14.20 - Cocaine dependence, uncomplicated (2) IVDU (intravenous drug user) Current Visit: Yes Status: Chronic (3) Opioid dependence with withdrawal Current Visit: Yes Status: Chronic (4) Substance induced mood disorder Current Visit: No Status: Acute (5) Cocaine dependence Current Visit: Yes Status: Chronic (6) Hepatitis C Current Visit: Yes Status: Chronic (7) Nicotine dependence Current Visit: Yes Status: Chronic (8) PPD positive Current Visit: Yes Status: Chronic Cleared for Admission [facility] - Detox or Rehab [facility] Level of Care: Medically Managed Detox Regimen/Protocol: Methadone Breathalyzer - Breathalyzer Breathalyzer: 0 Urine Drug Screen - Test Device Lot number: [id number] Expiration date: 11/17/19 - Control Is test valid?: Yes - Results Drug screen NEGATIVE: No Urine drug screen results: DEBORAH-Cocaine, FEN-Fentanyl, MOP-Opiates, MTD-Methadone Inpatient Rehab Admission - Rehab Decision to Admit Inpatient rehab admission?: No
[2018-12-10] MEDS ORDERED: METHOCARBAMOL 500 MG TABLET PO PRN (02:54)
[2018-12-10] MEDS ORDERED: cloNIDine HCL 0.1 MG TABLET PO PRN (02:54)
[2018-12-10] MEDS ORDERED: MAG HYDROX/AL HYDROX/SIMETH 30 ML UNIT-DOSE CUP PO PRN (02:54)
[2018-12-10] MEDS ORDERED: MENTHOL/PHENOL 1 EACH UD MM PRN (02:54)
[2018-12-10] MEDS ORDERED: MELATONIN 5 MG TABLETS PO PRN (02:54)
[2018-12-10] MEDS ORDERED: BISMUTH SUBSALICYLATE 524 MG/30 ML UD PO PRN (02:54)
[2018-12-10] MEDS ORDERED: ACETAMINOPHEN 325 MG TABLET (FP) PO PRN ×2 (02:54)
[2018-12-10] MEDS ORDERED: MAGNESIUM CITRATE 300 ML BOTTLE PO PRN (02:54)
[2018-12-10] MEDS ORDERED: MAGNESIUM HYDROX 2400MG/30ML ORAL SUSPENSION 30 ML CUP PO PRN (02:54)
[2018-12-10] MEDS ORDERED: METHADONE HCL 10 MG TABLET PO ONE (03:34)
[2018-12-10] MEDS: PRENATAL VITAMINS W/ FOLIC ACID TABLET (FP) PO SCH (10:27)
[2018-12-10] MEDS: hydrOXYzine PAMOATE 25 MG CAPSULE (FP) PO PRN ×2 (10:28→22:04)
--- NOTE | 2018-12-10 16:34 | PN ---
BHS COWS - Scale Resting Pulse: 0= [place] 80 or Below Sweatin= Chills/Flushing Restless Observation: 0= Sits Still Pupil Size: 0= Normal to Room Light Bone or Joint Aches: 2= Severe Diffuse Aches Runny Nose/ Eye Tearin= None GI Upset > 30mins: 2= Nausea/Diarrhea Tremor Observation of Outstretched Hands: 2= Slight Tremor Visible Yawning Observation: 1= 1-2x During Session Anxiety or Irritability: 2=Irritable/Anxious Goose Flesh Skin: 3=Piloerection COWS Score: 13 BHS Progress Note (SOAP) Subjective: Diarrhea, Body Aches, Tremors, Sweating. Objective: PATIENT A & O X 2 (UNCERTAIN ABOUT CURRENT DAY / DATE). PATIENT OBSERVED AMBULATING ON UNIT UNASSISTED. IN NO ACUTE DISTRESS. 12/10/18 16:35 Vital Signs Temperature 98 F 12/10/18 13:12 Pulse Rate 55 L 12/10/18 13:12 Respiratory Rate 18 12/10/18 13:12 Blood Pressure 108/70 12/10/18 13:12 O2 Sat by Pulse Oximetry (%) ADMISSION LAB RESULTS PENDING. Assessment: 12/10/18 16:35 WITHDRAWAL SYMPTOMS. Plan: CONTINUE DETOX.
[2018-12-10] MEDS: THIAMINE HCL 100 MG TABLET (FP) PO SCH (22:04)
[2018-12-10] MEDS ORDERED: METHADONE HCL 10 MG TABLET (FOR DETOX USE ONLY) PO ONE (23:00)
[2018-12-11] MEDS ORDERED: METHADONE HCL 10 MG TABLET (FOR DETOX USE ONLY) PO ONE (10:00)
[2018-12-11] MEDS: PRENATAL VITAMINS W/ FOLIC ACID TABLET (FP) PO SCH (10:22)
--- NOTE | 2018-12-11 11:39 | PN ---
BHS COWS - Scale Resting Pulse: 0= [place] 80 or Below Sweatin= Chills/Flushing Restless Observation: 1= Difficult to Sit Still Pupil Size: 1= Pupils >than Normal Bone or Joint Aches: 1= Mild Discomfort Runny Nose/ Eye Tearin= Nasal Congestion GI Upset > 30mins: 1= Stomach Cramp Tremor Observation of Outstretched Hands: 2= Slight Tremor Visible Yawning Observation: 1= 1-2x During Session Anxiety or Irritability: 2=Irritable/Anxious Goose Flesh Skin: 0=Smooth Skin COWS Score: 11 BHS Progress Note (SOAP) Subjective: report doing ok with methadone detox regimen ambulating on hallway social with peers in day room discuss medication assisted maintenance treatment program Objective: 12/11/18 11:37 Vital Signs Temperature 97.6 F 12/11/18 09:33 Pulse Rate 73 12/11/18 09:33 Respiratory Rate 18 12/11/18 09:33 Blood Pressure 123/85 12/11/18 09:33 O2 Sat by Pulse Oximetry (%) 12/11/18 11:38 lab pending Assessment: 12/11/18 11:38 opiate withdrawal sx Plan: continue detox
[2018-12-11 12:00] LABS: HEMATOCRIT 44.8 % (35.4-49); HEMOGLOBIN 14.6 GM/dL (11.7-16.9); MCH 28.6 pg (25.7-33.7); MCHC 32.7 g/dl (32.0-35.9); MEAN CELL VOLUME 87.7 fl (80-96); MEAN PLT VOLUME 8.2 fl (7.5-11.1); PLATELET COUNT 309 K/MM3 (134-434); RBC 5.11 M/mm3 (4.00-5.60); RDW 13.4 % (11.9-15.9); WHITE BLOOD COUNT 6.2 K/mm3 (4.0-10.0)
[2018-12-11 12:24] LABS: ALBUMIN 3.4 g/dl (3.4-5.0); ALK PHOS 67 U/L (45-117); ANION GAP 7 MMOL/L (8-16); BILIRUBIN,TOTAL 0.4 mg/dL (0.2-1); BLOOD UREA NITROGEN 10 mg/dL (7-18); CALCIUM 9.2 mg/dL (8.5-10.1); CHLORIDE 106 mmol/L (98-107); CO2 27 mmol/L (21-32); CREATININE 0.9 mg/dL (0.55-1.3); GLUCOSE,RANDOM 91 mg/dL (74-106); POTASSIUM 4.2 mmol/L (3.5-5.1); SGOT/AST 47 U/L (15-37); SGPT/ALT 61 U/L (13-61); SODIUM 140 mmol/L (136-145); TOT PROT 7.6 g/dl (6.4-8.2)
[2018-12-11] MEDS: THIAMINE HCL 100 MG TABLET (FP) PO SCH (22:28)
[2018-12-12] MEDS ORDERED: METHADONE HCL 10 MG TABLET (FOR DETOX USE ONLY) PO ONE (10:00)
[2018-12-12] MEDS: PRENATAL VITAMINS W/ FOLIC ACID TABLET (FP) PO SCH (10:40)
--- NOTE | 2018-12-12 12:27 | PN ---
BHS COWS - Scale Resting Pulse: 0= [place] 80 or Below Sweatin= Chills/Flushing Restless Observation: 1= Difficult to Sit Still Pupil Size: 1= Pupils >than Normal Bone or Joint Aches: 1= Mild Discomfort Runny Nose/ Eye Tearin= Nasal Congestion GI Upset > 30mins: 1= Stomach Cramp Tremor Observation of Outstretched Hands: 1= Tremor [place], Not Seen Yawning Observation: 0= None Anxiety or Irritability: 0= None Goose Flesh Skin: 0=Smooth Skin COWS Score: 7 BHS Progress Note (SOAP) Subjective: feeling better today more energy sleep better at night Objective: 12/12/18 12:25 Vital Signs Temperature 98.6 F 12/12/18 09:56 Pulse Rate 65 12/12/18 09:56 Respiratory Rate 18 12/12/18 09:56 Blood Pressure 125/79 12/12/18 09:56 O2 Sat by Pulse Oximetry (%) 12/12/18 12:35 Laboratory Last Values WBC 6.2 K/mm3 (4.0-10.0) 12/11/18 07:30 RBC 5.11 M/mm3 (4.00-5.60) 12/11/18 07:30 Hgb 14.6 GM/dL (11.7-16.9) 12/11/18 07:30 Hct 44.8 % (35.4-49) 12/11/18 07:30 MCV 87.7 fl (80-96) 12/11/18 07:30 MCH 28.6 pg (25.7-33.7) 12/11/18 07:30 MCHC 32.7 g/dl (32.0-35.9) 12/11/18 07:30 RDW 13.4 % (11.9-15.9) 12/11/18 07:30 Plt Count 309 K/MM3 (134-434) 12/11/18 07:30 MPV 8.2 fl (7.5-11.1) 12/11/18 07:30 Sodium 140 mmol/L (136-145) 12/11/18 07:30 Potassium 4.2 mmol/L (3.5-5.1) 12/11/18 07:30 Chloride 106 mmol/L (98-107) 12/11/18 07:30 Carbon Dioxide 27 mmol/L (21-32) 12/11/18 07:30 Anion Gap 7 MMOL/L (8-16) L 12/11/18 07:30 BUN 10 mg/dL (7-18) 12/11/18 07:30 Creatinine 0.9 mg/dL (0.55-1.3) 12/11/18 07:30 Creat Clearance w eGFR 87.94 (>60) 12/11/18 07:30 Random Glucose 91 mg/dL (74-106) 12/11/18 07:30 Calcium 9.2 mg/dL (8.5-10.1) 12/11/18 07:30 Total Bilirubin 0.4 mg/dL (0.2-1) 12/11/18 07:30 AST 47 U/L (15-37) H 12/11/18 07:30 ALT 61 U/L (13-61) 12/11/18 07:30 Alkaline Phosphatase 67 U/L (45-117) 12/11/18 07:30 Total Protein 7.6 g/dl (6.4-8.2) 12/11/18 07:30 Albumin 3.4 g/dl (3.4-5.0) 12/11/18 07:30 RPR Titer Nonreactive (NONREACTIVE) 12/11/18 07:30 HIV 1&2 Antibody Screen Negative 12/11/18 07:30 HIV P24 Antigen Negative 12/11/18 07:30 lab noted Assessment: 12/12/18 12:35 opiate withdrawal sx Plan: continue detox
[2018-12-12] MEDS: THIAMINE HCL 100 MG TABLET (FP) PO SCH (22:35)
[2018-12-13] MEDS ORDERED: METHADONE HCL 10 MG TABLET (FOR DETOX USE ONLY) PO ONE (10:00)
[2018-12-13] MEDS: PRENATAL VITAMINS W/ FOLIC ACID TABLET (FP) PO SCH (10:37)
[2018-12-13] MEDS: hydrOXYzine PAMOATE 25 MG CAPSULE (FP) PO PRN (10:37)
--- NOTE | 2018-12-13 16:54 | PN ---
BHS COWS - Scale Resting Pulse: 0= [place] 80 or Below Sweatin= No chills or Flushing Restless Observation: 1= Difficult to Sit Still Pupil Size: 0= Normal to Room Light Bone or Joint Aches: 0= None Runny Nose/ Eye Tearin= None GI Upset > 30mins: 0= None Tremor Observation of Outstretched Hands: 0= None Yawning Observation: 1= 1-2x During Session Anxiety or Irritability: 0= None Goose Flesh Skin: 0=Smooth Skin COWS Score: 2 BHS Progress Note (SOAP) Subjective: Patient denies current Withdrawal / Detox symptoms and reports that he feels well overall. Patient Notes that his energy level is now good. Objective: PATIENT A & O X 2 (UNCERTAIN ABOUT CURRENT DAY / DATE). PATIENT OBSERVED AMBULATING ON UNIT UNASSISTED. IN NO ACUTE DISTRESS. 12/13/18 16:51 Vital Signs Temperature 97.3 F L 12/13/18 13:14 Pulse Rate 52 L 12/13/18 13:14 Respiratory Rate 18 12/13/18 13:14 Blood Pressure 103/60 12/13/18 13:14 O2 Sat by Pulse Oximetry (%) Laboratory Tests 12/11/18 12/11/18 12/11/18 07:30 07:30 07:30 WBC 6.2 RBC 5.11 Hgb 14.6 Hct 44.8 MCV 87.7 MCH 28.6 MCHC 32.7 RDW 13.4 Plt Count 309 MPV 8.2 Sodium 140 Potassium 4.2 Chloride 106 Carbon Dioxide 27 Anion Gap 7 L BUN 10 Creatinine 0.9 Creat Clearance w eGFR 87.94 Random Glucose 91 Calcium 9.2 Total Bilirubin 0.4 AST 47 H ALT 61 Alkaline Phosphatase 67 Total Protein 7.6 Albumin 3.4 RPR Titer HIV 1&2 Antibody Screen Negative HIV P24 Antigen Negative 12/11/18 07:30 WBC RBC Hgb Hct MCV MCH MCHC RDW Plt Count MPV Sodium Potassium Chloride Carbon Dioxide Anion Gap BUN Creatinine Creat Clearance w eGFR Random Glucose Calcium Total Bilirubin AST ALT Alkaline Phosphatase Total Protein Albumin RPR Titer Nonreactive HIV 1&2 Antibody Screen HIV P24 Antigen LABS NOTED. Assessment: 12/13/18 16:53 WITHDRAWAL SYMPTOMS. Plan: CONTINUE DETOX. PATIENT SCHEDULED FOR D/C TOMORROW.
[2018-12-13] MEDS: IBUPROFEN 400 MG TABLET (FP) PO PRN (19:32)
[2018-12-13] MEDS: THIAMINE HCL 100 MG TABLET (FP) PO SCH (22:29)
[2018-12-14] MEDS ORDERED: METHADONE HCL 5 MG TABLET (FOR DETOX USE ONLY) PO ONE (06:00)
[2018-12-14 06:24] VITALS: BP 124/76; PULSE 47; TEMP 96.6
[2018-12-14] MEDS: PRENATAL VITAMINS W/ FOLIC ACID TABLET (FP) PO SCH (09:09)
[2018-12-14] MEDS: IBUPROFEN 400 MG TABLET (FP) PO PRN (09:09)
--- NOTE | 2018-12-14 18:14 | DS ---
[facility] Detox Discharge Summary Admission Date: 12/10/18 Discharge Date: 12/14/18 - History Present History: Cocaine Dependence, Opioid Dependence Additional Comments: PATIENT REPORTS THAT HE IS GOING TO [facility] ([place], [place]) FOR AFTERCARE. PATIENT WAS DISCHARGED FROM DETOX UNIT IN STABLE MEDICAL CONDITION. Pertinent Past History: Hep C, Depression, Anxiety, Intravenous Drug User (I.V.D.U.), Nicotine Dependence, History Of PPD Positive. - Physical Exam Results Vital Signs: Vital Signs Temperature 96.6 F L 12/14/18 06:22 Pulse Rate 47 L 12/14/18 06:22 Respiratory Rate 18 12/14/18 06:22 Blood Pressure 124/76 12/14/18 06:22 O2 Sat by Pulse Oximetry (%) Pertinent Admission Physical Exam Findings: WITHDRAWAL SYMPTOMS. Laboratory Tests 12/11/18 12/11/18 12/11/18 07:30 07:30 07:30 WBC 6.2 RBC 5.11 Hgb 14.6 Hct 44.8 MCV 87.7 MCH 28.6 MCHC 32.7 RDW 13.4 Plt Count 309 MPV 8.2 Sodium 140 Potassium 4.2 Chloride 106 Carbon Dioxide 27 Anion Gap 7 L BUN 10 Creatinine 0.9 Creat Clearance w eGFR 87.94 Random Glucose 91 Calcium 9.2 Total Bilirubin 0.4 AST 47 H ALT 61 Alkaline Phosphatase 67 Total Protein 7.6 Albumin 3.4 RPR Titer HIV 1&2 Antibody Screen Negative HIV P24 Antigen Negative 12/11/18 07:30 WBC RBC Hgb Hct MCV MCH MCHC RDW Plt Count MPV Sodium Potassium Chloride Carbon Dioxide Anion Gap BUN Creatinine Creat Clearance w eGFR Random Glucose Calcium Total Bilirubin AST ALT Alkaline Phosphatase Total Protein Albumin RPR Titer Nonreactive HIV 1&2 Antibody Screen HIV P24 Antigen LABS NOTED. - Treatment Hospital Course: Detox Protocol Followed, Detoxed Safely, Responded well, Discharged Condition Good, Rehab Referral Accepted Patient has Accepted a Rehab Referral to: [facility] ([place], [place]). - Medication Discharge Medications: Ambulatory Orders Naloxone HCl [Narcan] 4 mg NS ASDIR PRN #1 spray 09/24/18 - Diagnosis (1) Substance induced mood disorder Status: Acute (2) Cocaine dependence Status: Chronic Qualifiers: Substance use status: in withdrawal Qualified Code(s): F14.23 - Cocaine dependence with withdrawal (3) Hepatitis C Status: Chronic Qualifiers: Viral hepatitis chronicity: chronic Hepatic coma status: without hepatic coma Qualified Code(s): B18.2 - Chronic viral hepatitis C (4) IVDU (intravenous drug user) Status: Chronic (5) Nicotine dependence Status: Chronic Qualifiers: Nicotine product type: cigarettes Substance use status: uncomplicated Qualified Code(s): F17.210 - Nicotine dependence, cigarettes, uncomplicated (6) Opioid dependence with withdrawal Status: Acute (7) PPD positive Status: Chronic - AMA Did Patient Leave Against Medical Advice: No
== END 2018-12-14 09:25 | disposition home or self-care (01) | DRG 773 ==
LOC: YASAS 21:00 → Y3N 12-10 03:03
PROVIDERS: ADMIT Surgery; ATTEND Surgery
PROC: HZ2ZZZZ Detoxification Services for Substance Abuse Treatment (ICD-10-PCS; principal; 2018-12-10)
DX: F11.23 Opioid dependence with withdrawal (principal); F14.20 Cocaine dependence, uncomplicated; F17.210 Nicotine dependence, cigarettes, uncomplicated; F19.24 Other psychoactive substance dependence with psychoactive substance-induced mood disorder; F41.8 Other specified anxiety disorders; F32.9 Major depressive disorder, single episode, unspecified; B18.2 Chronic viral hepatitis C; R76.11 Nonspecific reaction to tuberculin skin test without active tuberculosis
CPT/HCPCS: 36415; 80053; 85027; 86593; 87389

== ENCOUNTER 2019-02-24 15:49 | Inpatient (IN) | payer OTHER ==
[2019-02-24 20:26] VITALS: BMI 28.7
--- NOTE | 2019-02-25 00:57 | HP ---
COWS - Scale Resting Pulse: 0= [place] 80 or Below Sweatin=Flushed/Facial Moisture Restless Observation: 1= Difficult to Sit Still Pupil Size: 0= Normal to Room Light Bone or Joint Aches: 4=Acute Joint/Muscle Pain Runny Nose/ Eye Tearin= Nasal Congestion GI Upset > 30mins: 0= None Tremor Observation: 0= None Yawning Observation: 1= 1-2x During Session Anxiety or Irritability: 2=Irritable/Anxious Goose Flesh Skin: 0=Smooth Skin COWS Score: 11 CIWA Score - Admission Criteria OAS Guidelines: Admission for Medically Managed Detox: Requires at least one of the followin. CIWA greater than 12 2. Seizures within the past 24 hours 3. Delirium tremens within the past 24 hours 4. Hallucinations within the past 24 hours 5. Acute intervention needed for co occurring medical disorder 6. Acute intervention needed for co occurring psychiatric disorder 7. Severe withdrawal that cannot be handled at a lower level of care (continued vomiting, continued diarrhea, abnormal vital signs) requiring intravenous medication and/or fluids 8. Admission [facility] Chief Complaint: C/O WIHDRAWAL SX'S Allergies/Adverse Reactions: Allergies Allergy/AdvReac Type Severity Reaction Status Date / Time No Known Allergies Allergy Verified 02/24/19 20:21 History of Present Illness: HERE FOR DETOX. PRESENTS WITH C/O WITHDRAWAL SX'S. COWS 11. SELF REFERRED. LAST HERE 11/2018. REPORTS RELAPSING 2 MONTHS AFTER. HE STATES HE USES HEROIN DAILY. LONGEST CLEAN TIME 7 YEARS. IVDA, DENIES HX/O DRUG OVERDOSE. DOMICILED, EMPLOYED , DENIES LEGALS. Exam Limitations: No Limitations - Ebola screening Have you traveled outside of the country in the last 21 days: No Have you had contact with anyone from an Ebola affected area: No Do you have a fever: No - Review of Systems Constitutional: Chills, Loss of Appetite EENT: reports: Nose Congestion Respiratory: reports: No Symptoms reported Cardiac: reports: No Symptoms Reported GI: reports: Poor Appetite : reports: No Symptoms Reported Musculoskeletal: reports: Back Pain Integumentary: reports: No Symptoms Reported Neuro: reports: No Symptoms reported Endocrine: reports: No Symptoms Reported Hematology: reports: No Symptoms Reported Psychiatric: reports: Orientated x3, Agitated (IRRITBALE), Anxious, Depressed ( DENIES SI) Other Systems: Reviewed and Negative Patient History - Patient Medical History Hx Anemia: No Hx Asthma: No Hx Chronic Obstructive Pulmonary Disease (COPD): No Hx Cancer: No Hx Cardiac Disorders: No Hx Congestive Heart Failure: No Hx Hypertension: No Hx Hypercholesterolemia: No Hx Pacemaker: No HX Cerebrovascular Accident: No Hx Seizures: No Hx Dementia: No Hx Diabetes: No Hx Gastrointestinal Disorders: No Hx Liver Disease: Yes (Hep C- NO TXMENT) Hx Genitourinary Disorders: No Hx Sexually Transmitted Disorders: No Hx Renal Disease (ESRD): No Hx Thyroid Disease: No Hx Human Immunodeficiency Virus (HIV): No Hx Hepatitis C: Yes (Not treated) Hx Depression: Yes Hx Suicide Attempt: No Hx Bipolar Disorder: No Hx Schizophrenia: No Other Medical History: DENIES - Patient Surgical History Past Surgical History: No Hx Neurologic Surgery: No Hx Cataract Extraction: No Hx Cardiac Surgery: No Hx Lung Surgery: No Hx Breast Surgery: No Hx Breast Biopsy: No Hx Abdominal Surgery: No Hx Appendectomy: No Hx Cholecystectomy: No Hx Genitourinary Surgery: No Hx Section: No Hx Orthopedic Surgery: No Anesthesia Reaction: No - PPD History Previous Implant?: Yes Documented Results: Positive w/o proof Implanted On Prior [facility] Admission?: No Results: X-ray 10/08 PPD to be Administered?: No - Smoking Cessation Smoking history: Current every day smoker Have you smoked in the past 12 months: Yes Aproximately how many cigarettes per day: 10 Cigars Per Day: 0 Hx Chewing Tobacco Use: No Initiated information on smoking cessation: Yes 'Breaking Loose' booklet given: 02/25/19 - Substance & Tx. History Hx Alcohol Use: No Hx Substance Use: Yes Substance Use Type: Cocaine, Heroin Hx Substance Use Treatment: Yes ([facility]) - Substances abused Heroin Substance route: Injection Frequency: Daily Amount used: 10-12 bags Age of first use: 33 Date of last use: 02/23/19 Cocaine Substance route: Injection Frequency: Daily Amount used: $20 Age of first use: 33 Date of last use: 02/23/19 Family Disease History - Family Disease History Family History: Denies Admission Physical Exam BHS - Vital Signs Vital Signs: Vital Signs - 24 hr 02/24/19 02/24/19 20:21 22:48 Temperature 100.4 F H 100.4 F H Pulse Rate 69 69 Respiratory 18 18 Rate Blood Pressure 114/72 114/72 - Physical General Appearance: Yes: Moderate Distress, Irritable, Sweating, Anxious HEENTM: Yes: EOMI, Normocephalic, Normal Voice, Pharynx Normal, Nasal Congestion , Other (POOR DENTITION WITH MISSING TEETH) Respiratory: Yes: Chest Non-Tender, Lungs Clear, Normal Breath Sounds, No Respiratory Distress, No Accessory Muscle Use Neck: Yes: No masses,lesions,Nodules, Supple, Trachea in good position Breast: Yes: Breast Exam Deferred Cardiology: Yes: Regular Rhythm, Regular Rate, S1, S2 Abdominal: Yes: Non Tender, Soft, Increased Bowel Sounds Genitourinary: Yes: Within Normal Limits Back: Yes: Normal Inspection Musculoskeletal: Yes: full range of Motion, Gait Steady Extremities: Yes: Normal Capillary Refill, Normal Range of Motion, Non-Tender Neurological: Yes: Fully Oriented, Alert, Motor Strength 5/5 Integumentary: Yes: Clammy Lymphatic: Yes: Within Normal Limits - Diagnostic (1) Substance induced mood disorder Current Visit: Yes Status: Suspected (2) Substance-induced sleep disorder Current Visit: Yes Status: Suspected (3) Cocaine dependence Current Visit: Yes Status: Acute Qualifiers: Substance use status: uncomplicated Qualified Code(s): F14.20 - Cocaine dependence, uncomplicated (4) Hepatitis C Current Visit: Yes Status: Chronic Qualifiers: Viral hepatitis chronicity: chronic Hepatic coma status: without hepatic coma Qualified Code(s): B18.2 - Chronic viral hepatitis C (5) IVDU (intravenous drug user) Current Visit: Yes Status: Chronic (6) Nicotine dependence Current Visit: Yes Status: Chronic Qualifiers: Nicotine product type: cigarettes Substance use status: uncomplicated Qualified Code(s): F17.210 - Nicotine dependence, cigarettes, uncomplicated (7) PPD positive Current Visit: Yes Status: Chronic Cleared for Admission S - Detox or Rehab [facility] Level of Care: Medically Managed Detox Regimen/Protocol: Methadone Claeared for Rehab Admission: No Breathalyzer - Breathalyzer Breathalyzer: 0 Urine Drug Screen - Test Device Lot number: [id number] Expiration date: 12/17/20 - Control Is test valid?: Yes - Results Drug screen NEGATIVE: No Urine drug screen results: DEBORAH-Cocaine, FEN-Fentanyl, MOP-Opiates, OXY-Oxycodone Inpatient Rehab Admission - Rehab Decision to Admit Inpatient rehab admission?: No
[2019-02-25] MEDS ORDERED: ONDANSETRON *ODT* 4 MG TABLET SL PRN (01:01)
[2019-02-25] MEDS ORDERED: MELATONIN 5 MG TABLETS PO PRN (01:01)
[2019-02-25] MEDS ORDERED: NICOTINE POLACRILEX 2 MG GUM BUC PRN (01:01)
[2019-02-25] MEDS ORDERED: clonazePAM 0.5 MG TABLET PO PRN (01:01)
[2019-02-25] MEDS ORDERED: NALOXONE HCL 0.4 MG/ML VIAL IVPUSH PRN (01:01)
[2019-02-25] MEDS ORDERED: ACETAMINOPHEN 325 MG TABLET (FP) PO PRN ×2 (01:01)
[2019-02-25] MEDS ORDERED: guaiFENesin 200 MG/10 ML 10 ML UNIT-DOSE CUPS PO PRN (01:01)
[2019-02-25] MEDS ORDERED: BISMUTH SUBSALICYLATE 524 MG/30 ML UD PO PRN (01:01)
[2019-02-25] MEDS ORDERED: cloNIDine HCL 0.1 MG TABLET PO PRN (01:01)
[2019-02-25] MEDS ORDERED: DICYCLOMINE HCL 10 MG CAPSULE PO PRN (01:01)
[2019-02-25] MEDS ORDERED: METHOCARBAMOL 500 MG TABLET PO PRN (01:01)
[2019-02-25] MEDS ORDERED: P-EPHED 60MG/TRIPROLIDI 2.5MG TABLET PO PRN (01:01)
[2019-02-25] MEDS ORDERED: MAG HYDROX/AL HYDROX/SIMETH 30 ML UNIT-DOSE CUP PO PRN (01:01)
[2019-02-25] MEDS ORDERED: MENTHOL/PHENOL 1 EACH UD MM PRN (01:01)
[2019-02-25] MEDS ORDERED: MAGNESIUM CITRATE 300 ML BOTTLE PO PRN (01:01)
[2019-02-25] MEDS ORDERED: METHADONE HCL 10 MG TABLET (FOR DETOX USE ONLY) PO ONE (01:01)
[2019-02-25] MEDS ORDERED: MAGNESIUM HYDROX 2400MG/30ML ORAL SUSPENSION 30 ML CUP PO PRN (01:01)
[2019-02-25] MEDS: IBUPROFEN 400 MG TABLET (FP) PO PRN ×2 (02:34→13:52)
--- NOTE | 2019-02-25 10:29 | PN ---
BHS COWS - Scale Sweatin=Flushed/Facial Moisture Restless Observation: 1= Difficult to Sit Still Pupil Size: 0= Normal to Room Light Bone or Joint Aches: 2= Severe Diffuse Aches Runny Nose/ Eye Tearin= Runny Nose/Eyes GI Upset > 30mins: 1= Stomach Cramp Tremor Observation of Outstretched Hands: 2= Slight Tremor Visible Yawning Observation: 2= >3x During Session Anxiety or Irritability: 2=Irritable/Anxious Goose Flesh Skin: 0=Smooth Skin BHS Progress Note (SOAP) Subjective: sweats shakes body aches irritable agitation interrupted sleep Objective: 02/25/19 10:28 Vital Signs Temperature 97.7 F 02/25/19 06:00 Pulse Rate 42 L 02/25/19 06:00 Respiratory Rate 20 02/25/19 06:00 Blood Pressure 120/69 02/25/19 06:00 O2 Sat by Pulse Oximetry (%) pending labs aaox3 ambulating no acute distress Assessment: 02/25/19 10:29 withdrawal sx Plan: continue detox increase fluids pending labs
[2019-02-25] MEDS: NICOTINE 21 MG/24 HOURS TOPICAL PATCH TD SCH (11:42)
[2019-02-25] MEDS: PRENATAL VITAMINS W/ FOLIC ACID TABLET (FP) PO SCH (11:42)
[2019-02-25 12:25] LABS: HEMATOCRIT 43.5 % (35.4-49); HEMOGLOBIN 14.3 GM/dL (11.7-16.9); MCH 28.8 pg (25.7-33.7); MCHC 32.9 g/dl (32.0-35.9); MEAN CELL VOLUME 87.3 fl (80-96); MEAN PLT VOLUME 8.5 fl (7.5-11.1); PLATELET COUNT 298 K/MM3 (134-434); RBC 4.99 M/mm3 (4.00-5.60); RDW 13.6 % (11.9-15.9); WHITE BLOOD COUNT 5.5 K/mm3 (4.0-10.0)
[2019-02-25 12:41] LABS: ALBUMIN 3.2 g/dl (3.4-5.0); BILIRUBIN,TOTAL 0.6 mg/dL (0.2-1); BLOOD UREA NITROGEN 14.9 mg/dL (7-18); CALCIUM 8.5 mg/dL (8.5-10.1); POTASSIUM 4.5 mmol/L (3.5-5.1); TOT PROT 7.3 g/dl (6.4-8.2)
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
[2019-02-25] MEDS: THIAMINE HCL 100 MG TABLET (FP) PO SCH (23:33)
[2019-02-26] MEDS ORDERED: METHADONE HCL 5 MG TABLET (FOR DETOX USE ONLY) ONE (09:23)
[2019-02-26] MEDS ORDERED: METHADONE HCL 10 MG TABLET (FOR DETOX USE ONLY) ONE (09:24)
[2019-02-26] MEDS ORDERED: METHADONE (DETOX) 20 MG, METHADONE (DETOX) 5 MG PO ONE (10:00)
[2019-02-26] MEDS: PRENATAL VITAMINS W/ FOLIC ACID TABLET (FP) PO SCH (10:50)
[2019-02-26] MEDS: NICOTINE 21 MG/24 HOURS TOPICAL PATCH TD SCH (10:50)
--- NOTE | 2019-02-26 11:40 | PN ---
BHS COWS - Scale Resting Pulse: 0= [place] 80 or Below Sweatin=Flushed/Facial Moisture Restless Observation: 1= Difficult to Sit Still Pupil Size: 0= Normal to Room Light Bone or Joint Aches: 1= Mild Discomfort Runny Nose/ Eye Tearin= Nasal Congestion GI Upset > 30mins: 0= None Tremor Observation of Outstretched Hands: 1= Tremor [place], Not Seen Yawning Observation: 1= 1-2x During Session Anxiety or Irritability: 2=Irritable/Anxious Goose Flesh Skin: 0=Smooth Skin COWS Score: 9 BHS Progress Note (SOAP) Subjective: sweats shakes interrupted sleep irritable Objective: 02/26/19 11:39 Vital Signs Temperature 97.9 F 02/26/19 09:33 Pulse Rate 60 02/26/19 09:33 Respiratory Rate 18 02/26/19 09:33 Blood Pressure 125/69 02/26/19 09:33 O2 Sat by Pulse Oximetry (%) Laboratory Tests 02/25/19 02/25/19 02/25/19 06:00 06:00 06:00 WBC 5.5 RBC 4.99 Hgb 14.3 Hct 43.5 MCV 87.3 MCH 28.8 MCHC 32.9 RDW 13.6 Plt Count 298 MPV 8.5 Sodium 139 Potassium 4.5 Chloride 107 Carbon Dioxide 27 Anion Gap 5 L BUN 14.9 Creatinine 1.0 Est GFR (CKD-EPI)AfAm 98.46 Est GFR (CKD-EPI)NonAf 84.95 Random Glucose 95 Calcium 8.5 Total Bilirubin 0.6 AST 51 H ALT 57 Alkaline Phosphatase 73 Total Protein 7.3 Albumin 3.2 L RPR Titer Nonreactive labs noted aaox3 ambulating no acute distress Assessment: 02/26/19 11:39 withdrawal sx Plan: continue detox increase fluids
[2019-02-26] MEDS: IBUPROFEN 400 MG TABLET (FP) PO PRN (12:27)
[2019-02-26 17:56] VITALS: TEMP 98.2
[2019-02-26 20:53] VITALS: BP 111/67; PULSE 60
[2019-02-26] MEDS: THIAMINE HCL 100 MG TABLET (FP) PO SCH (23:05)
--- NOTE | 2019-02-27 09:50 | DS ---
[facility] Detox Discharge Summary Admission Date: 02/25/19 - History Present History: Cocaine Dependence, Opioid Dependence - Physical Exam Results Vital Signs: Vital Signs Temperature 98.2 F 02/26/19 20:52 Pulse Rate 60 02/26/19 20:52 Respiratory Rate 18 02/27/19 03:30 Blood Pressure 111/67 02/26/19 20:52 O2 Sat by Pulse Oximetry (%) Pertinent Admission Physical Exam Findings: pt signed out AMA. pt aaox3, ambulating, no s/s of withdrawals noted all belongings and d/c papers provided. - Treatment Hospital Course: Discharged Condition Good Patient has Accepted a Rehab Referral to: referred to [facility] - Medication Discharge Medications: Ambulatory Orders NK [No Known Home Medication] 02/24/19 - Diagnosis (1) Cocaine dependence Status: Chronic Qualifiers: Substance use status: uncomplicated Qualified Code(s): F14.20 - Cocaine dependence, uncomplicated (2) Opioid dependence with withdrawal Status: Chronic (3) Cocaine dependence Status: Chronic Qualifiers: Substance use status: uncomplicated Qualified Code(s): F14.20 - Cocaine dependence, uncomplicated (4) Hepatitis C Status: Chronic Qualifiers: Viral hepatitis chronicity: chronic Hepatic coma status: without hepatic coma Qualified Code(s): B18.2 - Chronic viral hepatitis C (5) IVDU (intravenous drug user) Status: Chronic (6) Nicotine dependence Status: Chronic Qualifiers: Nicotine product type: cigarettes Substance use status: uncomplicated Qualified Code(s): F17.210 - Nicotine dependence, cigarettes, uncomplicated (7) PPD positive Status: Chronic (8) Substance induced mood disorder Status: Suspected (9) Substance-induced sleep disorder Status: Suspected - AMA Did Patient Leave Against Medical Advice: Yes (referred to [place] [facility])
--- NOTE | 2019-02-27 09:54 | PN ---
[facility] Progress Note Note: pt was admitted in withdrawals, during his stay pt had been improving but did not complete his detox in spite of extensive motivational counseling regarding the risk of relapse, seizures, OD and/or loss; pt chose to sign out AMA.
[2019-02-27] MEDS ORDERED: METHADONE HCL 10 MG TABLET (FOR DETOX USE ONLY) PO ONE (10:00)
[2019-02-28] MEDS ORDERED: METHADONE (DETOX) 10 MG, METHADONE (DETOX) 5 MG PO ONE (10:00)
[2019-03-01] MEDS ORDERED: METHADONE HCL 10 MG TABLET (FOR DETOX USE ONLY) PO ONE (10:00)
[2019-03-02] MEDS ORDERED: METHADONE HCL 5 MG TABLET (FOR DETOX USE ONLY) PO ONE (06:00)
== END 2019-02-27 09:06 | disposition home or self-care (01) | DRG 773 ==
LOC: YASAS 15:49 → Y6N 02-25 01:51
PROVIDERS: ADMIT Surgery; ATTEND Surgery
PROC: HZ2ZZZZ Detoxification Services for Substance Abuse Treatment (ICD-10-PCS; principal; 2019-02-25)
DX: F11.23 Opioid dependence with withdrawal (principal); F14.20 Cocaine dependence, uncomplicated; F17.210 Nicotine dependence, cigarettes, uncomplicated; F19.24 Other psychoactive substance dependence with psychoactive substance-induced mood disorder; F19.282 Other psychoactive substance dependence with psychoactive substance-induced sleep disorder; B18.2 Chronic viral hepatitis C; R76.11 Nonspecific reaction to tuberculin skin test without active tuberculosis
CPT/HCPCS: 36415; 80053; 85027; 86593

== ENCOUNTER 2019-08-09 14:57 | Inpatient (IN) | payer OTHER ==
[2019-08-09 18:27] VITALS: BMI 26.6
--- NOTE | 2019-08-09 20:24 | HP ---
COWS - Scale Resting Pulse: 0= NE 80 or Below Sweatin=Flushed/Facial Moisture Restless Observation: 0= Sits Still Pupil Size: 1= Pupils >than Normal Bone or Joint Aches: 4=Acute Joint/Muscle Pain Runny Nose/ Eye Tearin= Constantly Teary/Runny GI Upset > 30mins: 3= Vomiting/Diarrhea (vomiting x 2, diarrhea x 3) Tremor Observation: 2= Slight Tremor Visible Yawning Observation: 0= None Anxiety or Irritability: 2=Irritable/Anxious Goose Flesh Skin: 0=Smooth Skin COWS Score: 18 CIWA Score - Admission Criteria OASAS Guidelines: Admission for Medically Managed Detox: Requires at least one of the followin. CIWA greater than 12 2. Seizures within the past 24 hours 3. Delirium tremens within the past 24 hours 4. Hallucinations within the past 24 hours 5. Acute intervention needed for co occurring medical disorder 6. Acute intervention needed for co occurring psychiatric disorder 7. Severe withdrawal that cannot be handled at a lower level of care (continued vomiting, continued diarrhea, abnormal vital signs) requiring intravenous medication and/or fluids 8. Admitting History and Physical - Smoking History Smoking history: Current every day smoker Have you smoked in the past 12 months: Yes Aproximately how many cigarettes per day: 10 - Alcohol/Substance Use Hx Alcohol Use: No Admission ROS [facility] - [facility] Chief Complaint: Heroin withdrawal symptoms Allergies/Adverse Reactions: Allergies Allergy/AdvReac Type Severity Reaction Status Date / Time No Known Allergies Allergy Verified 08/09/19 18:23 History of Present Illness: 53 years old male who reports that he has been using heroin for 20 years is seeking admission to detox. He reports the the longest period of sobriety is 7 years. This is his 6th admission to inpatient detox/Rehab. at [facility]. He is homeless and live in a care home. He has medical history of Hep. C. He denies suicidal ideation at this time. Search Terms: tara koehler, 1965 Search Date: 08/09/2019 08:20:07 PM The Drug Utilization Report below displays all of the controlled substance prescriptions, if any, that your patient has filled in the last twelve months. The information displayed on this report is compiled from pharmacy submissions to the Department, and accurately reflects the information as submitted by the pharmacies. There are no results for the search terms that you entered. 2017 [facility] Department of Health - [place] of Narcotic Enforcement 08/09/2019 20:20:07 Exam Limitations: No Limitations - Ebola screening Have you traveled outside of the country in the last 21 days: No (N) Have you had contact with anyone from an Ebola affected area: No Have you been sick,other than usual withdrawal symptoms: No - Review of Systems Constitutional: Chills, Loss of Appetite, Malaise, Night Sweats, Changes in sleep EENT: reports: Nose Congestion Respiratory: reports: Cough Cardiac: reports: No Symptoms Reported GI: reports: Diarrhea, Poor Appetite, Poor Fluid Intake, Vomiting, Abdominal cramping : reports: No Symptoms Reported Musculoskeletal: reports: Back Pain Integumentary: reports: Dryness, Flushing Neuro: reports: Tremors Endocrine: reports: No Symptoms Reported Hematology: reports: No Symptoms Reported Psychiatric: reports: Mood/Affect Appropiate, Orientated x3 Other Systems: Reviewed and Negative Patient History - Patient Medical History Hx Anemia: No Hx Asthma: No Hx Chronic Obstructive Pulmonary Disease (COPD): No Hx Cancer: No Hx Cardiac Disorders: No Hx Congestive Heart Failure: No Hx Hypertension: No Hx Hypercholesterolemia: No Hx Pacemaker: No HX Cerebrovascular Accident: No Hx Seizures: No Hx Dementia: No Hx Diabetes: No Hx Gastrointestinal Disorders: No Hx Liver Disease: Yes (Hep C- NO TXMENT) Hx Genitourinary Disorders: No Hx Sexually Transmitted Disorders: No Hx Renal Disease (ESRD): No Hx Thyroid Disease: No Hx Human Immunodeficiency Virus (HIV): No Hx Hepatitis C: Yes (Not treated) Hx Depression: No Hx Suicide Attempt: No (Denies suicidal ideation at this time) Hx Bipolar Disorder: No Hx Schizophrenia: No - Patient Surgical History Past Surgical History: No Hx Neurologic Surgery: No Hx Cataract Extraction: No Hx Cardiac Surgery: No Hx Lung Surgery: No Hx Breast Surgery: No Hx Breast Biopsy: No Hx Abdominal Surgery: No Hx Appendectomy: No Hx Cholecystectomy: No Hx Genitourinary Surgery: No Hx Section: No Hx Orthopedic Surgery: No Anesthesia Reaction: No - PPD History Previous Implant?: Yes (PPD POSITIVE) Implanted On Prior R Admission?: No Results: X-ray 10/08 PPD to be Administered?: No - Reproductive History Patient is a Female of Child Bearing Age (11 -55 yrs old): No (male) - Smoking Cessation Smoking history: Current every day smoker Have you smoked in the past 12 months: Yes Aproximately how many cigarettes per day: 10 Cigars Per Day: 0 Hx Chewing Tobacco Use: No Initiated information on smoking cessation: Yes 'Breaking Loose' booklet given: 08/09/19 - Substance & Tx. History Hx Alcohol Use: No Hx Substance Use: Yes Substance Use Type: Alcohol, Heroin, Opiates Hx Substance Use Treatment: Yes ([facility]) - Substances abused Heroin Substance route: Injection Frequency: Daily Amount used: 5 bags Age of first use: 33 Date of last use: 08/08/19 Cocaine Substance route: Injection Frequency: Daily Amount used: $20 Age of first use: 33 Date of last use: 08/08/19 Admission Physical Exam [facility] - Vital Signs Vital Signs: Vital Signs - 24 hr 08/09/19 18:24 Temperature 97.6 F Pulse Rate 80 Respiratory 18 Rate Blood Pressure 129/86 - Physical General Appearance: Yes: Moderate Distress, Tremorous, Irritable, Sweating, Anxious HEENTM: Yes: Within Normal Limits Respiratory: Yes: Lungs Clear, Normal Breath Sounds, No Respiratory Distress Neck: Yes: Supple Breast: Yes: Breast Exam Deferred Cardiology: Yes: Regular Rhythm, Regular Rate Abdominal: Yes: Normal Bowel Sounds Back: Yes: Normal Inspection Musculoskeletal: Yes: Back pain Extremities: Yes: Tremors Neurological: Yes: Within Normal Limits, Alert, Normal Mood/Affect Integumentary: Yes: Warm Lymphatic: Yes: Within Normal Limits - Diagnostic (1) Cocaine dependence Current Visit: Yes Status: Chronic Qualifiers: Substance use status: uncomplicated Qualified Code(s): F14.20 - Cocaine dependence, uncomplicated (2) Hepatitis C Current Visit: Yes Status: Chronic Qualifiers: Viral hepatitis chronicity: unspecified Hepatic coma status: without hepatic coma Qualified Code(s): B19.20 - Unspecified viral hepatitis C without hepatic coma (3) IVDU (intravenous drug user) Current Visit: No Status: Chronic (4) Nicotine dependence Current Visit: Yes Status: Chronic Qualifiers: Nicotine product type: cigarettes Substance use status: uncomplicated Qualified Code(s): F17.210 - Nicotine dependence, cigarettes, uncomplicated (5) Opioid dependence with withdrawal Current Visit: Yes Status: Acute (6) PPD positive Current Visit: Yes Status: Chronic Cleared for Admission [facility] - Detox or Rehab [facility] Level of Care: Medically Managed Detox Regimen/Protocol: Methadone Claeared for Rehab Admission: No Breathalyzer - Breathalyzer Breathalyzer: 0 Urine Drug Screen - Test Device Lot number: [id number] Expiration date: 03/19/21 - Control Is test valid?: Yes - Results Drug screen NEGATIVE: No Urine drug screen results: DEBORAH-Cocaine, MOP-Opiates Inpatient Rehab Admission - Rehab Decision to Admit Inpatient rehab admission?: No
[2019-08-09] MEDS ORDERED: cloNIDine HCL 0.1 MG TABLET PO PRN (20:35)
[2019-08-09] MEDS ORDERED: MAGNESIUM HYDROX 2400MG/30ML ORAL SUSPENSION 30 ML CUP PO PRN (20:35)
[2019-08-09] MEDS ORDERED: MAG HYDROX/AL HYDROX/SIMETH 30 ML UNIT-DOSE CUP PO PRN (20:35)
[2019-08-09] MEDS ORDERED: METHADONE HCL 10 MG TABLET (FOR DETOX USE ONLY) PO ONE (20:35)
[2019-08-09] MEDS ORDERED: NICOTINE POLACRILEX 2 MG GUM BUC PRN (20:35)
[2019-08-09] MEDS ORDERED: METHOCARBAMOL 500 MG TABLET PO PRN (20:35)
[2019-08-09] MEDS ORDERED: MAGNESIUM CITRATE 300 ML BOTTLE PO PRN (20:35)
[2019-08-09] MEDS ORDERED: hydrOXYzine PAMOATE 25 MG CAPSULE (FP) PO PRN (20:35)
[2019-08-09] MEDS ORDERED: MELATONIN 5 MG TABLETS PO PRN (20:35)
[2019-08-09] MEDS ORDERED: IBUPROFEN 400 MG TABLET (FP) PO PRN (20:35)
[2019-08-09] MEDS ORDERED: ACETAMINOPHEN 325 MG TABLET (FP) PO PRN ×2 (20:35)
[2019-08-10] MEDS: THIAMINE HCL 100 MG TABLET (FP) PO SCH ×2 (06:27→22:42)
--- NOTE | 2019-08-10 09:08 | PN ---
[facility] COWS - Scale Resting Pulse: 0= MD 80 or Below Sweatin= Chills/Flushing Restless Observation: 0= Sits Still Pupil Size: 1= Pupils >than Normal Bone or Joint Aches: 2= Severe Diffuse Aches Runny Nose/ Eye Tearin= Nasal Congestion GI Upset > 30mins: 2= Nausea/Diarrhea Tremor Observation of Outstretched Hands: 2= Slight Tremor Visible Yawning Observation: 1= 1-2x During Session Anxiety or Irritability: 2=Irritable/Anxious Goose Flesh Skin: 3=Piloerection COWS Score: 15 S Progress Note (SOAP) Subjective: 53 years old male sixth admission since 09/2018 admitted on 08/09/19 for opiate withdrawal sx management treating with methadone detox regimen ate breakfast resting in bed feeling tired limited conversation with staff Objective: 08/10/19 09:07 Vital Signs Temperature 98.3 F 08/10/19 06:13 Pulse Rate 58 L 08/10/19 06:13 Respiratory Rate 18 08/10/19 06:30 Blood Pressure 134/86 08/10/19 06:13 O2 Sat by Pulse Oximetry (%) 08/10/19 09:09 lab pending Assessment: 08/10/19 09:09 opiate withdrawal Plan: methadone regimen
[2019-08-10] MEDS ORDERED: METHADONE HCL 5 MG TABLET (FOR DETOX USE ONLY) PO ONE (10:00)
[2019-08-10 10:43] LABS: HEMATOCRIT 44.6 % (35.4-49); HEMOGLOBIN 14.8 GM/dL (11.7-16.9); MCH 28.9 pg (25.7-33.7); MCHC 33.1 g/dl (32.0-35.9); MEAN CELL VOLUME 87.3 fl (80-96); MEAN PLT VOLUME 8.1 fl (7.5-11.1); PLATELET COUNT 342 K/MM3 (134-434); RBC 5.11 M/mm3 (4.00-5.60); RDW 13.6 % (11.9-15.9); WHITE BLOOD COUNT 7.1 K/mm3 (4.0-10.0)
[2019-08-10] MEDS: PRENATAL VITAMINS W/ FOLIC ACID TABLET (FP) PO SCH (10:46)
[2019-08-10] MEDS: NICOTINE 14 MG/24 HOURS TOPICAL PATCH TD SCH (10:47)
[2019-08-10 10:48] LABS: ALBUMIN 3.2 g/dl (3.4-5.0); BILIRUBIN,TOTAL 0.3 mg/dL (0.2-1); BLOOD UREA NITROGEN 10.6 mg/dL (7-18); CALCIUM 8.9 mg/dL (8.5-10.1); CREATININE 0.9 mg/dL (0.55-1.3); POTASSIUM 4.2 mmol/L (3.5-5.1); TOT PROT 7.4 g/dl (6.4-8.2)
[2019-08-10] MEDS: MENTHOL/PHENOL 1 EACH UD MM PRN ×2 (12:27→16:37)
[2019-08-10] MEDS: BISMUTH SUBSALICYLATE 524 MG/30 ML UD PO PRN (16:40)
--- NOTE | 2019-08-10 18:44 | EKG ---
Test Reason : Blood Pressure : / mmHG Vent. Rate : 071 BPM Atrial Rate : 071 BPM P-R Int : 144 ms QRS Dur : 084 ms QT Int : 404 ms P-R-T Axes : 049 025 021 degrees QTc Int : 439 ms NORMAL SINUS RHYTHM CANNOT RULE OUT ANTERIOR INFARCT , AGE UNDETERMINED ABNORMAL ECG NO PREVIOUS ECGS AVAILABLE Confirmed by NOLAN MADDEN MD ([id number]) on 08/10/2019 6:44:07 PM Referred By: Confirmed By:NOLAN MADDEN MD
[2019-08-11 09:12] VITALS: BP 129/82; PULSE 70; TEMP 97.7
[2019-08-11] MEDS: NICOTINE 14 MG/24 HOURS TOPICAL PATCH TD SCH (09:26)
[2019-08-11] MEDS: PRENATAL VITAMINS W/ FOLIC ACID TABLET (FP) PO SCH (09:26)
[2019-08-11] MEDS: BISMUTH SUBSALICYLATE 524 MG/30 ML UD PO PRN (09:27)
[2019-08-11] MEDS ORDERED: METHADONE HCL 10 MG TABLET (FOR DETOX USE ONLY) PO ONE (10:00)
--- NOTE | 2019-08-11 13:50 | DS ---
[facility] Detox Discharge Summary Admission Date: 08/09/19 Discharge Date: 08/11/19 - History Present History: Opioid Dependence Additional Comments: 53 years old male admitted on 08/09/19 for opiate withdrawal sx management treated with methadone detox regimen patient requests to be discharged one day early as estimated discharge date of 08/12/19 case discuss with the nurse against medical advice is appropriated patient prefers to returning home than attend [facility] chemical dependent rehab patient is alert oriented x 3 speech clearly coherently ambulating steady gait Pertinent Past History: opiate withdrawal Vital Signs Temperature 97.7 F 08/11/19 09:11 Pulse Rate 70 08/11/19 09:11 Respiratory Rate 18 08/11/19 09:11 Blood Pressure 129/82 08/11/19 09:11 O2 Sat by Pulse Oximetry (%) Laboratory Last Values WBC 7.1 K/mm3 (4.0-10.0) 08/10/19 07:35 RBC 5.11 M/mm3 (4.00-5.60) 08/10/19 07:35 Hgb 14.8 GM/dL (11.7-16.9) 08/10/19 07:35 Hct 44.6 % (35.4-49) 08/10/19 07:35 MCV 87.3 fl (80-96) 08/10/19 07:35 MCH 28.9 pg (25.7-33.7) 08/10/19 07:35 MCHC 33.1 g/dl (32.0-35.9) 08/10/19 07:35 RDW 13.6 % (11.9-15.9) 08/10/19 07:35 Plt Count 342 K/MM3 (134-434) 08/10/19 07:35 MPV 8.1 fl (7.5-11.1) 08/10/19 07:35 Sodium 141 mmol/L (136-145) 08/10/19 07:35 Potassium 4.2 mmol/L (3.5-5.1) 08/10/19 07:35 Chloride 109 mmol/L (98-107) H 08/10/19 07:35 Carbon Dioxide 26 mmol/L (21-32) 08/10/19 07:35 Anion Gap 6 MMOL/L (8-16) L 08/10/19 07:35 BUN 10.6 mg/dL (7-18) 08/10/19 07:35 Creatinine 0.9 mg/dL (0.55-1.3) 08/10/19 07:35 Est GFR (CKD-EPI)AfAm 111.83 08/10/19 07:35 Est GFR (CKD-EPI)NonAf 96.49 08/10/19 07:35 Random Glucose 103 mg/dL (74-106) 08/10/19 07:35 Calcium 8.9 mg/dL (8.5-10.1) 08/10/19 07:35 Total Bilirubin 0.3 mg/dL (0.2-1) 08/10/19 07:35 AST 33 U/L (15-37) 08/10/19 07:35 ALT 46 U/L (13-61) 08/10/19 07:35 Alkaline Phosphatase 63 U/L (45-117) 08/10/19 07:35 Total Protein 7.4 g/dl (6.4-8.2) 08/10/19 07:35 Albumin 3.2 g/dl (3.4-5.0) L 08/10/19 07:35 RPR Titer Nonreactive (NONREACTIVE) 08/10/19 07:35 lab noted - Physical Exam Results Vital Signs: Vital Signs Temperature 97.7 F 08/11/19 09:11 Pulse Rate 70 08/11/19 09:11 Respiratory Rate 18 08/11/19 09:11 Blood Pressure 129/82 08/11/19 09:11 O2 Sat by Pulse Oximetry (%) Pertinent Admission Physical Exam Findings: opiate withdrawal Laboratory Last Values WBC 7.1 K/mm3 (4.0-10.0) 08/10/19 07:35 RBC 5.11 M/mm3 (4.00-5.60) 08/10/19 07:35 Hgb 14.8 GM/dL (11.7-16.9) 08/10/19 07:35 Hct 44.6 % (35.4-49) 08/10/19 07:35 MCV 87.3 fl (80-96) 08/10/19 07:35 MCH 28.9 pg (25.7-33.7) 08/10/19 07:35 MCHC 33.1 g/dl (32.0-35.9) 08/10/19 07:35 RDW 13.6 % (11.9-15.9) 08/10/19 07:35 Plt Count 342 K/MM3 (134-434) 08/10/19 07:35 MPV 8.1 fl (7.5-11.1) 08/10/19 07:35 Sodium 141 mmol/L (136-145) 08/10/19 07:35 Potassium 4.2 mmol/L (3.5-5.1) 08/10/19 07:35 Chloride 109 mmol/L (98-107) H 08/10/19 07:35 Carbon Dioxide 26 mmol/L (21-32) 08/10/19 07:35 Anion Gap 6 MMOL/L (8-16) L 08/10/19 07:35 BUN 10.6 mg/dL (7-18) 08/10/19 07:35 Creatinine 0.9 mg/dL (0.55-1.3) 08/10/19 07:35 Est GFR (CKD-EPI)AfAm 111.83 08/10/19 07:35 Est GFR (CKD-EPI)NonAf 96.49 08/10/19 07:35 Random Glucose 103 mg/dL (74-106) 08/10/19 07:35 Calcium 8.9 mg/dL (8.5-10.1) 08/10/19 07:35 Total Bilirubin 0.3 mg/dL (0.2-1) 08/10/19 07:35 AST 33 U/L (15-37) 08/10/19 07:35 ALT 46 U/L (13-61) 08/10/19 07:35 Alkaline Phosphatase 63 U/L (45-117) 08/10/19 07:35 Total Protein 7.4 g/dl (6.4-8.2) 08/10/19 07:35 Albumin 3.2 g/dl (3.4-5.0) L 08/10/19 07:35 RPR Titer Nonreactive (NONREACTIVE) 08/10/19 07:35 lab noted - Treatment Hospital Course: Detox Protocol Followed, Discharged Condition Good, Rehab Referral Accepted Patient has Accepted a Rehab Referral to: [facility] chemical dependent rehab - Medication Discharge Medications: Ambulatory Orders Naloxone HCl [Narcan] 4 mg NS ASDIR PRN #1 spray 08/10/19 - Diagnosis (1) Opioid dependence with withdrawal Status: Acute (2) Hepatitis C Status: Chronic Qualifiers: Viral hepatitis chronicity: unspecified Hepatic coma status: without hepatic coma Qualified Code(s): B19.20 - Unspecified viral hepatitis C without hepatic coma (3) Nicotine dependence Status: Acute Qualifiers: Nicotine product type: cigarettes Substance use status: in withdrawal Qualified Code(s): F17.213 - Nicotine dependence, cigarettes, with withdrawal (4) PPD positive Status: Resolved (5) Substance induced mood disorder Status: Suspected - AMA Did Patient Leave Against Medical Advice: Yes
[2019-08-12] MEDS ORDERED: METHADONE HCL 5 MG TABLET (FOR DETOX USE ONLY) PO ONE (06:00)
== END 2019-08-11 11:16 | disposition left against medical advice (07) | DRG 770 ==
LOC: YASAS 14:57 → Y3N 21:00
PROVIDERS: ADMIT Allergy & Immunology; ATTEND Allergy & Immunology
PROC: HZ2ZZZZ Detoxification Services for Substance Abuse Treatment (ICD-10-PCS; principal; 2019-08-09)
DX: F11.23 Opioid dependence with withdrawal (principal); F14.20 Cocaine dependence, uncomplicated; F17.213 Nicotine dependence, cigarettes, with withdrawal; F19.24 Other psychoactive substance dependence with psychoactive substance-induced mood disorder; B19.20 Unspecified viral hepatitis C without hepatic coma; R76.11 Nonspecific reaction to tuberculin skin test without active tuberculosis; Z59.0 Homelessness
CPT/HCPCS: 36415; 80053; 85027; 86593; 93005; 93010; J0735

== ENCOUNTER 2019-10-25 11:38 | Inpatient (IN) | payer OTHER ==
--- NOTE | 2019-10-25 12:36 | BHS.RME ---
Substance Use & Tx History - Substance Use History Opiates (Heroin) Substance amount: 10 bags Frequency of use: Daily Substance route: Injection (ex: intravenous or skin popping) Date of Last Use: 10/25/19 Alcohol Substance amount: 1 pint liquor Frequency of use: Daily Substance route: Oral Date of Last Use: 10/25/19 cocaine Substance amount: $20 Frequency of use: Daily Substance route: Inhalation (ex: sniffing or snorting) Date of Last Use: 10/25/19 - Last Treatment Date of last treatment: 08/09/19 Where was [place] [facility] [place] Physical/Psych/Mental Status - Behavior Eye Contact: Normal - Cooperativeness Cooperativeness: Cooperative - Thinking Thought Processes: Logical Thought content: Future oriented - Physical Health Problems Is patient presently having any pain?: No Does patient presently have any injuries (include location): No Does patient currently have a fever: No Is patient : No COWS - Scale Resting Pulse: 1= [place] 81-100 Sweatin= Chills/Flushing Restless Observation: 1= Difficult to Sit Still Pupil Size: 0= Normal to Room Light Bone or Joint Aches: 1= Mild Discomfort Runny Nose/ Eye Tearin= Nasal Congestion GI Upset > 30mins: 2= Nausea/Diarrhea Tremor Observation: 2= Slight Tremor Visible Yawning Observation: 1= 1-2x During Session Anxiety or Irritability: 1=Feels Anxious/Irritable Goose Flesh Skin: 0=Smooth Skin COWS Score: 11 CIWA Nausea/Vomitin-Mild Nausea/No Vomiting Muscle Tremors: 3 Anxiety: 4-Mod. Anxious/Guarded Agitation: 0-Normal Activity Paroxysmal Sweats: No Perspiration Orientation: 0-Oriented Tacttile Disturbances: 1-Very Mild Itch/Numbness Auditory Disturbances: 1-Very Mild Visual Disturbances: 2-Mild Sensitivity Headache: 2-Mild CIWA-Ar Total Score: 14
--- NOTE | 2019-10-25 12:47 | HP ---
COWS - Scale Resting Pulse: 1= MA 81-100 Sweatin= Chills/Flushing Restless Observation: 1= Difficult to Sit Still Pupil Size: 0= Normal to Room Light Bone or Joint Aches: 1= Mild Discomfort Runny Nose/ Eye Tearin= Nasal Congestion GI Upset > 30mins: 2= Nausea/Diarrhea Tremor Observation: 2= Slight Tremor Visible Yawning Observation: 1= 1-2x During Session Anxiety or Irritability: 1=Feels Anxious/Irritable Goose Flesh Skin: 0=Smooth Skin COWS Score: 11 CIWA Score Nausea/Vomitin-Mild Nausea/No Vomiting Muscle Tremors: 3 Anxiety: 4-Mod. Anxious/Guarded Agitation: 0-Normal Activity Paroxysmal Sweats: No Perspiration Orientation: 1-Uncertain about Date Tacttile Disturbances: 1-Very Mild Itch/Numbness Auditory Disturbances: 1-Very Mild Visual Disturbances: 2-Mild Sensitivity Headache: 2-Mild CIWA-Ar Total Score: 15 - Admission Criteria [facility]ASAS Guidelines: Admission for Medically Managed Detox: Requires at least one of the followin. CIWA greater than 12 2. Seizures within the past 24 hours 3. Delirium tremens within the past 24 hours 4. Hallucinations within the past 24 hours 5. Acute intervention needed for co occurring medical disorder 6. Acute intervention needed for co occurring psychiatric disorder 7. Severe withdrawal that cannot be handled at a lower level of care (continued vomiting, continued diarrhea, abnormal vital signs) requiring intravenous medication and/or fluids 8. Patient presents the following: CIWA greater than 12 Admission Criteria Met: Admission criteria met Admitting History and Physical - Admission History Source: Patient, Medical Record Limitations to Obtaining History: No Limitations - Past Medical History Hepatobiliary: Yes: Hepatitis C - Smoking History Smoking history: Current every day smoker Have you smoked in the past 12 months: Yes Aproximately how many cigarettes per day: 10 - Alcohol/Substance Use Hx Alcohol Use: Yes History of Substance Use: reports: Cocaine, Heroin - Social History Usual Living Arrangement: Yes: Other (lives with daughter age 21 in apartment) ADL: Independent Admission ROS S - HPI Chief Complaint: I don't want to lose my family, I'm tired, I'm really going to do it this time Allergies/Adverse Reactions: Allergies Allergy/AdvReac Type Severity Reaction Status Date / Time No Known Allergies Allergy Verified 08/09/19 18:23 History of Present Illness: 54 yo gentleman here for detox from heroin, also using alcohol. Denies seizures or overdose, drinks first thing in the morning. This is one of several admissions for treatment - noted most of the time patient only stayed 2 days - discussed same with him and importance of completing treatment. Patient lives in an apartment with daughter, is not on disability. Denies every trying methadone or suboxone program - "I don't want another habit" but would be interested in Vivitrol injections. Stemgent: Search Terms: tara koehler, 1965 Search Date: 10/25/2019 12:48:56 PM The Drug Utilization Report below displays all of the controlled substance prescriptions, if any, that your patient has filled in the last twelve months. The information displayed on this report is compiled from pharmacy submissions to the Department, and accurately reflects the information as submitted by the pharmacies. This report was requested by: Monica Lara | Reference #: [id number] There are no results for the search terms that you entered. Exam Limitations: No Limitations - Ebola screening Have you traveled outside of the country in the last 21 days: No Have you been sick,other than usual withdrawal symptoms: No Do you have a fever: No - Review of Systems Constitutional: Malaise, Changes in sleep, Weakness EENT: reports: Nose Congestion Respiratory: reports: No Symptoms reported Cardiac: reports: No Symptoms Reported GI: reports: Nausea, Poor Appetite, Poor Fluid Intake : reports: No Symptoms Reported Musculoskeletal: reports: Back Pain, Muscle Pain Integumentary: reports: No Symptoms Reported Neuro: reports: Headache, Tingling, Tremors Endocrine: reports: No Symptoms Reported Hematology: reports: No Symptoms Reported Psychiatric: reports: Judgement Intact, Mood/Affect Appropiate, Anxious Other Systems: Reviewed and Negative Patient History - Patient Medical History Hx Anemia: No Hx Asthma: No Hx Chronic Obstructive Pulmonary Disease (COPD): No Hx Cancer: No Hx Cardiac Disorders: No Hx Congestive Heart Failure: No Hx Hypertension: No Hx Hypercholesterolemia: No Hx Pacemaker: No HX Cerebrovascular Accident: No Hx Seizures: No Hx Dementia: No Hx Diabetes: No Hx Gastrointestinal Disorders: No Hx Liver Disease: Yes (Hep C- NO TXMENT) Hx Genitourinary Disorders: No Hx Sexually Transmitted Disorders: No Hx Renal Disease (ESRD): No Hx Thyroid Disease: No Hx Human Immunodeficiency Virus (HIV): No Hx Hepatitis C: Yes (Not treated) Hx Depression: No Hx Suicide Attempt: No (Denies suicidal ideation at this time) Hx Bipolar Disorder: No Hx Schizophrenia: No - Patient Surgical History Past Surgical History: No Hx Neurologic Surgery: No Hx Cataract Extraction: No Hx Cardiac Surgery: No Hx Lung Surgery: No Hx Breast Surgery: No Hx Breast Biopsy: No Hx Abdominal Surgery: No Hx Appendectomy: No Hx Cholecystectomy: No Hx Genitourinary Surgery: No Hx Section: No Hx Orthopedic Surgery: No Anesthesia Reaction: No - PPD History Previous Implant?: Yes Documented Results: Positive w/o proof (took 1995) Results: X-ray 10/08 - Reproductive History Patient is a Female of Child Bearing Age (11 -55 yrs old): No (male) - Smoking Cessation Smoking history: Current every day smoker Have you smoked in the past 12 months: Yes Aproximately how many cigarettes per day: 10 Cigars Per Day: 0 Hx Chewing Tobacco Use: No Initiated information on smoking cessation: Yes 'Breaking Loose' booklet given: 10/25/19 (give on floor) - Substance & Tx. History Hx Alcohol Use: Yes Hx Substance Use: Yes Substance Use Type: Alcohol, Cocaine, Heroin Hx Substance Use Treatment: Yes (detox, rehab) - Substances abused Heroin Substance route: Injection Frequency: Daily Amount used: 10 bags Age of first use: 33 Date of last use: 10/25/19 Alcohol Substance route: Oral Frequency: Daily Amount used: 1 pint liquor Age of first use: 22 Date of last use: 10/25/19 Cocaine Substance route: Inhalation Frequency: 3-6 times per week Amount used: $20 Age of first use: 19 Date of last use: 10/24/19 Admission Physical Exam BHS - Vital Signs Vital Signs: 138/88 P89 R 16 T 98.1 - Physical General Appearance: Yes: Nourished, Appropriately Dressed, Moderate Distress, Tremorous, Anxious HEENTM: Yes: EOMI, Hearing grossly Normal, Normocephalic, Normal Voice, Pharynx Normal, Other (tongue coated) Respiratory: Yes: Normal Breath Sounds, No Respiratory Distress Neck: Yes: No masses,lesions,Nodules Breast: Yes: Breast Exam Deferred Cardiology: Yes: Regular Rhythm, Regular Rate Abdominal: Yes: Soft Genitourinary: Yes: Within Normal Limits Back: Yes: Normal Inspection Musculoskeletal: Yes: full range of Motion, Gait Steady, Back pain, Muscle Pain Extremities: Yes: Normal Inspection, Normal Range of Motion, Non-Tender, Tremors Neurological: Yes: Alert, Motor Strength 5/5, Normal Mood/Affect, Normal Response Integumentary: Yes: Normal Color, Warm, Track Lepe (dorsal aspect of hands with track lepe - no abscess noted) Lymphatic: Yes: Within Normal Limits - Diagnostic (1) Opioid dependence with withdrawal Current Visit: Yes Status: Chronic (2) Cocaine dependence Current Visit: Yes Status: Chronic Qualifiers: Substance use status: uncomplicated Qualified Code(s): F14.20 - Cocaine dependence, uncomplicated (3) Alcohol dependence Current Visit: Yes Status: Chronic Qualifiers: Substance use status: uncomplicated Qualified Code(s): F10.20 - Alcohol dependence, uncomplicated (4) PPD positive, treated Current Visit: Yes Status: Acute (5) Nicotine dependence Current Visit: Yes Status: Acute Qualifiers: Nicotine product type: cigarettes Substance use status: uncomplicated Qualified Code(s): F17.210 - Nicotine dependence, cigarettes, uncomplicated (6) Hepatitis C Current Visit: Yes Status: Chronic Qualifiers: Viral hepatitis chronicity: chronic Hepatic coma status: without hepatic coma Qualified Code(s): B18.2 - Chronic viral hepatitis C (7) IVDU (intravenous drug user) Current Visit: Yes Status: Chronic Cleared for Admission [facility] - Detox or Rehab [facility] Level of Care: Medically Managed Detox Regimen/Protocol: Ativan, Methadone Breathalyzer - Breathalyzer Breathalyzer: 0.023 Urine Drug Screen - Test Device Lot number: [id number] Expiration date: 07/19/21 - Control Is test valid?: Yes - Results Drug screen NEGATIVE: No Urine drug screen results: DEBORAH-Cocaine, FEN-Fentanyl, MOP-Opiates Inpatient Rehab Admission - Rehab Decision to Admit Inpatient rehab admission?: No
[2019-10-25] MEDS ORDERED: ACETAMINOPHEN 325 MG TABLET (FP) PO PRN ×2 (12:57)
[2019-10-25] MEDS ORDERED: METHOCARBAMOL 500 MG TABLET PO PRN (12:57)
[2019-10-25] MEDS ORDERED: cloNIDine HCL 0.1 MG TABLET PO PRN (12:57)
[2019-10-25] MEDS ORDERED: LORazepam 1 MG TABLET PO PRN (12:57)
[2019-10-25] MEDS ORDERED: MENTHOL/PHENOL 1 EACH UD MM PRN (12:57)
[2019-10-25] MEDS ORDERED: MAG HYDROX/AL HYDROX/SIMETH 30 ML UNIT-DOSE CUP PO PRN (12:57)
[2019-10-25] MEDS ORDERED: LORazepam 2 MG TABLET PO ONE (12:57)
[2019-10-25] MEDS ORDERED: BISMUTH SUBSALICYLATE 524 MG/30 ML UD PO PRN (12:57)
[2019-10-25] MEDS ORDERED: IBUPROFEN 400 MG TABLET (FP) PO PRN (12:57)
[2019-10-25] MEDS ORDERED: METHADONE HCL 10 MG TABLET (FOR DETOX USE ONLY) PO ONE (12:57)
[2019-10-25] MEDS ORDERED: MAGNESIUM HYDROX 2400MG/30ML ORAL SUSPENSION 30 ML CUP PO PRN (12:57)
[2019-10-25] MEDS ORDERED: MAGNESIUM CITRATE 300 ML BOTTLE PO PRN (12:57)
[2019-10-25] MEDS ORDERED: ONDANSETRON *ODT* 4 MG TABLET SL ONE (12:57)
[2019-10-25] MEDS ORDERED: NICOTINE POLACRILEX 4 MG GUM BUC PRN (12:57)
[2019-10-25] MEDS: PRENATAL VITAMINS W/ FOLIC ACID TABLET (FP) PO SCH (14:30)
[2019-10-25 15:21] VITALS: BMI 24.8
[2019-10-25] MEDS: LORazepam 2 MG TABLET PO SCH ×2 (18:14→22:45)
[2019-10-25] MEDS ORDERED: MELATONIN 5 MG TABLETS PO SCH (22:00)
[2019-10-25] MEDS ORDERED: THIAMINE HCL 100 MG TABLET (FP) PO SCH (22:00)
[2019-10-26] MEDS: LORazepam 2 MG TABLET PO SCH ×2 (06:47→10:15)
[2019-10-26] MEDS ORDERED: METHADONE HCL 5 MG TABLET (FOR DETOX USE ONLY) ONE (09:31)
[2019-10-26] MEDS ORDERED: METHADONE HCL 10 MG TABLET (FOR DETOX USE ONLY) ONE (09:31)
[2019-10-26] MEDS ORDERED: METHADONE (DETOX) 20 MG, METHADONE (DETOX) 5 MG PO ONE (10:00)
[2019-10-26] MEDS: PRENATAL VITAMINS W/ FOLIC ACID TABLET (FP) PO SCH (10:15)
[2019-10-26 10:30] VITALS: BP 115/60; PULSE 90; TEMP 98.2
[2019-10-26 11:38] LABS: HEMOGLOBIN 14.8 GM/dL (11.7-16.9); MCH 29.3 pg (25.7-33.7); MCHC 33.5 g/dl (32.0-35.9); MEAN CELL VOLUME 87.5 fl (80-96); MEAN PLT VOLUME 7.8 fl (7.5-11.1); PLATELET COUNT 325 K/MM3 (134-434); RBC 5.03 M/mm3 (4.00-5.60); RDW 13.1 % (11.9-15.9); WHITE BLOOD COUNT 6.2 K/mm3 (4.0-10.0)
--- NOTE | 2019-10-26 11:45 | PN ---
[facility] CIWA - CIWA Score Nausea/Vomitin-No Nausea/No Vomiting Muscle Tremors: 3 Anxiety: 2 Agitation: 2 Paroxysmal Sweats: 3 Orientation: 0-Oriented Tacttile Disturbances: 0-None Auditory Disturbances: 0-None Visual Disturbances: 0-None Headache: 0-None Present CIWA-Ar Total Score: 10 BHS COWS - Scale Resting Pulse: 1= ME 81-100 Sweatin= Chills/Flushing Restless Observation: 1= Difficult to Sit Still Pupil Size: 0= Normal to Room Light Bone or Joint Aches: 1= Mild Discomfort Runny Nose/ Eye Tearin= Nasal Congestion GI Upset > 30mins: 0= None Tremor Observation of Outstretched Hands: 1= Tremor [place], Not Seen Yawning Observation: 2= >3x During Session Anxiety or Irritability: 2=Irritable/Anxious Goose Flesh Skin: 0=Smooth Skin COWS Score: 10 S Progress Note (SOAP) Subjective: sweats shakes irritable agitation body aches chills interrupted sleep Objective: 10/26/19 11:44 Vital Signs Temperature 98.2 F 10/26/19 09:20 Pulse Rate 90 10/26/19 09:20 Respiratory Rate 20 10/26/19 09:20 Blood Pressure 115/60 10/26/19 09:20 O2 Sat by Pulse Oximetry (%) Laboratory Tests 10/26/19 07:50 WBC 6.2 RBC 5.03 Hgb 14.8 Hct 44.0 MCV 87.5 MCH 29.3 MCHC 33.5 RDW 13.1 Plt Count 325 MPV 7.8 pending labs aaox3 ambulating no acute distress Assessment: 10/26/19 11:44 withdrawals Plan: continue detox increase fluids
[2019-10-26 11:46] LABS: ALBUMIN 3.2 g/dl (3.4-5.0); BILIRUBIN,TOTAL 0.8 mg/dL (0.2-1); BLOOD UREA NITROGEN 15.4 mg/dL (7-18); CALCIUM 8.5 mg/dL (8.5-10.1); CREATININE 0.9 mg/dL (0.55-1.3); POTASSIUM 4.4 mmol/L (3.5-5.1); TOT PROT 7.5 g/dl (6.4-8.2)
--- NOTE | 2019-10-26 14:12 | PN ---
[facility] Progress Note Note: pt states he wants to leave he has family issues to attend to. pt was advised to stay and complete his detox to prevent relapse, seizure, DTs, OD and or loss, pt chose to sign out AMA.
--- NOTE | 2019-10-26 14:16 | DS ---
[facility] Detox Discharge Summary Admission Date: 10/25/19 - History Present History: Alcohol Dependence, Cocaine Dependence, Opioid Dependence - Physical Exam Results Vital Signs: Vital Signs Temperature 98.2 F 10/26/19 09:20 Pulse Rate 90 10/26/19 09:20 Respiratory Rate 20 10/26/19 09:20 Blood Pressure 115/60 10/26/19 09:20 O2 Sat by Pulse Oximetry (%) Pertinent Admission Physical Exam Findings: Vital Signs Temperature 98.2 F 10/26/19 09:20 Pulse Rate 90 10/26/19 09:20 Respiratory Rate 20 10/26/19 09:20 Blood Pressure 115/60 10/26/19 09:20 O2 Sat by Pulse Oximetry (%) Laboratory Tests 10/26/19 10/26/19 10/26/19 07:50 07:50 07:50 WBC 6.2 RBC 5.03 Hgb 14.8 Hct 44.0 MCV 87.5 MCH 29.3 MCHC 33.5 RDW 13.1 Plt Count 325 MPV 7.8 Sodium 139 Potassium 4.4 Chloride 104 Carbon Dioxide 30 Anion Gap 5 L BUN 15.4 Creatinine 0.9 Est GFR (CKD-EPI)AfAm 111.05 Est GFR (CKD-EPI)NonAf 95.81 Random Glucose 94 Calcium 8.5 Total Bilirubin 0.8 AST 44 H ALT 59 Alkaline Phosphatase 70 Total Protein 7.5 Albumin 3.2 L RPR Titer Nonreactive aaox3 ambulating no acute distress - Treatment Hospital Course: Rehab Referral Accepted - Medication Discharge Medications: Ambulatory Orders Naloxone HCl [Narcan] 4 mg NS ASDIR PRN #1 spray 08/10/19 - Diagnosis (1) Nicotine dependence Status: Chronic Qualifiers: Nicotine product type: cigarettes Substance use status: uncomplicated Qualified Code(s): F17.210 - Nicotine dependence, cigarettes, uncomplicated (2) PPD positive, treated Status: Acute (3) Alcohol dependence Status: Chronic Qualifiers: Substance use status: uncomplicated Qualified Code(s): F10.20 - Alcohol dependence, uncomplicated (4) Cocaine dependence Status: Chronic Qualifiers: Substance use status: uncomplicated Qualified Code(s): F14.20 - Cocaine dependence, uncomplicated (5) Hepatitis C Status: Chronic Qualifiers: Viral hepatitis chronicity: chronic Hepatic coma status: without hepatic coma Qualified Code(s): B18.2 - Chronic viral hepatitis C (6) IVDU (intravenous drug user) Status: Chronic (7) Opioid dependence with withdrawal Status: Chronic (8) Substance induced mood disorder Status: Suspected (9) Substance-induced sleep disorder Status: Suspected (10) PPD positive Status: Resolved - AMA Did Patient Leave Against Medical Advice: Yes
[2019-10-27] MEDS ORDERED: LORazepam 1 MG TABLET PO SCH (05:00)
[2019-10-27] MEDS ORDERED: METHADONE HCL 10 MG TABLET (FOR DETOX USE ONLY) PO ONE (10:00)
[2019-10-28] MEDS ORDERED: LORazepam 0.5 MG TABLET PO PRN
[2019-10-28] MEDS ORDERED: LORazepam 0.5 MG TABLET PO SCH (05:00)
[2019-10-28] MEDS ORDERED: METHADONE (DETOX) 10 MG, METHADONE (DETOX) 5 MG PO ONE (10:00)
[2019-10-29] MEDS ORDERED: LORazepam 0.5 MG TABLET PO ONE (05:00)
[2019-10-29] MEDS ORDERED: METHADONE HCL 10 MG TABLET (FOR DETOX USE ONLY) PO ONE (10:00)
[2019-10-30] MEDS ORDERED: METHADONE HCL 5 MG TABLET (FOR DETOX USE ONLY) PO ONE (06:00)
== END 2019-10-26 13:05 | disposition left against medical advice (07) | DRG 770 ==
LOC: YASAS 11:38 → Y6N 13:26
PROVIDERS: ADMIT Allergy & Immunology; ATTEND Allergy & Immunology
PROC: HZ2ZZZZ Detoxification Services for Substance Abuse Treatment (ICD-10-PCS; principal; 2019-10-25)
DX: F11.23 Opioid dependence with withdrawal (principal); F10.230 Alcohol dependence with withdrawal, uncomplicated; F14.20 Cocaine dependence, uncomplicated; F17.210 Nicotine dependence, cigarettes, uncomplicated; F19.282 Other psychoactive substance dependence with psychoactive substance-induced sleep disorder; F19.24 Other psychoactive substance dependence with psychoactive substance-induced mood disorder; B18.2 Chronic viral hepatitis C; R76.11 Nonspecific reaction to tuberculin skin test without active tuberculosis
CPT/HCPCS: 36415; 80053; 85027; 86593